=== PATIENT | female | born 1975 | race African-American/Black ===

== ENCOUNTER 2019-12-06 14:03 | Inpatient (IN) | payer OTHER ==
[2019-12-06] MEDS ORDERED: Acetaminophen 325 MG TAB PO PRN (15:28)
[2019-12-06] MEDS ORDERED: HYDROcodone/Acetaminophen 5/325 mg Tablet PO PRN (15:28)
[2019-12-06] MEDS: HYDROcodone/Acetaminophen 5/325 mg Tablet PO PRN ×2 (16:19→20:20)
[2019-12-06] MEDS ORDERED: cefOXitin Sodium/Dextrose,Iso 1 GM in Premix Bag 1 BAG IVPB SCH (18:00)
[2019-12-06] MEDS ORDERED: cefOXitin Sodium 1 GM in Sodium Chloride 0.9% 100 ML IVPB SCH (18:00)
[2019-12-06] MEDS ORDERED: Ibuprofen 800 MG TAB PO PRN (18:43)
[2019-12-06] MEDS: cefOXitin Sodium/Dextrose,Iso 2 GM in Premix Bag 1 BAG IVPB SCH ×2 (18:51→23:51)
--- NOTE | 2019-12-06 20:40 | HP ---
CHIEF COMPLAINT: Abdominal pain. HISTORY OF PRESENT ILLNESS: Ms. Koo is a 44-year-old black G2, P2, with a last menstrual period of 11/16/2019, who presents to [facility] Emergency Room complaining of a 4-day history of abdominal pain. She denies associated nausea or vomiting. Of note is the fact that she was admitted 2 years ago with bilateral TOAs. At that time, she was treated with antibiotics and did not require surgery. PAST OBSTETRICAL HISTORY: Includes 2 vaginal deliveries at term. PAST MEDICAL HISTORY: Includes HIV, currently sees Dr. Gonzales. PAST SURGICAL HISTORY: Unremarkable. CURRENT MEDICATIONS: Antiviral, currently unknown. ALLERGIES: NO KNOWN ALLERGIES. SOCIAL HISTORY: She states she smokes less than half a pack per day. She denies illicit drug use. FAMILY HISTORY: Unremarkable. REVIEW OF SYSTEMS: Positive for nausea and vomiting. Denies fever, chills, vaginal bleeding or vaginal discharge. PHYSICAL EXAMINATION: VITAL SIGNS: Initial vital signs; blood pressure 135/91, pulse 78, respirations 18, temperature 98.7, and O2 saturation 99% on room air. GENERAL: She is pleasant and in no acute distress. CHEST: Clear to auscultation. CARDIOVASCULAR: Regular rate and rhythm. ABDOMEN: Soft and nondistended. There is tenderness to deep palpation on both sides. PELVIC: Deferred. The patient will not allow at this time. LABORATORY DATA: White count 10.3, hemoglobin and hematocrit are 12.3 and 36.9 , and platelet count 281,000. Chemistries; sodium 136, potassium 4.3, BUN 7, creatinine 0.73, glucose 120, and lipase is 12. Qualitative test is negative. Urinalysis shows 1+ protein, positive for ketones, blood, and nitrites. There are positive for leukocyte esterase. On microscopic, there is 0 to 3 rbc's, 7 to 10 wbc's, 7 to 10 squamous cells, 3+ bacteria, and rare Trichomonas. Wet prep shows clue cells present and Trichomonas present. No yeast are noted. IMAGING DATA: CT of the abdomen and pelvis show normal liver, spleen, pancreas, adrenals, and kidneys. No gallstones are seen. No free air is seen. There is a small amount of free air in the pelvis. The uterus is seen and there appears to be dilated tubular structures with fluid-filled vargas in both adnexal regions with the right being reported larger than the left. These findings are consistent with tubo-ovarian abscesses. ASSESSMENT: 1. Suspected tubo-ovarian abscesses seen on CT today, possibly chronic. 2. History of human immunodeficiency virus. Status of disease unknown at this time. 3. Bacterial vaginosis and Trichomonas. PLAN: The patient will be admitted at this time. Mefoxin, doxycycline, and Flagyl have been started. Consult for Dr. Gonzales with Infectious Disease to evaluate her status has also been ordered. I have also ordered an ultrasound in the morning to further delineate the size of the tubo-ovarian abscesses that were seen on CT. The patient will be admitted and watched carefully. Job ID: [id number] [facility]
[2019-12-06] MEDS: metroNIDAZOLE 500 MG TAB PO SCH (21:45)
[2019-12-06] MEDS: Famotidine 20 MG TAB PO SCH (21:45)
[2019-12-06] MEDS: Doxycycline 100 MG CAP PO SCH (21:46)
[2019-12-06] MEDS ORDERED: Sodium Chloride 0.9% 20 ML ONE (22:41)
[2019-12-06] MEDS: Meperidine HCl/PF 25 MG/ML VIAL SLOW IVP PRN (23:05)
[2019-12-06] MEDS: Promethazine HCl 25 MG/ML VIAL SLOW IVP PRN (23:07)
[2019-12-07] MEDS: Meperidine HCl/PF 25 MG/ML VIAL SLOW IVP PRN ×2 (02:13→05:19)
[2019-12-07] MEDS: Promethazine HCl 25 MG/ML VIAL SLOW IVP PRN ×2 (02:15→05:21)
[2019-12-07] MEDS: cefOXitin Sodium/Dextrose,Iso 2 GM in Premix Bag 1 BAG IVPB SCH ×3 (05:34→19:49)
[2019-12-07 06:04] LABS: Band 30 % (5-11); Hemoglobin 11.4 g/dL (12.0-16.0); Hypochromia SLIGHT = 6-15 cells (100X) (0-5/hpf); Lymphocytes 1 % (21-51); MDiff Complete? YES; Mean Corpuscular HGB CONC 32.3 g/dL (32.0-36.0); Mean Corpuscular Hemoglobin 29.6 pg (27.0-31.0); Mean Corpuscular Volume 91.5 fL (78.0-98.0); Mean Platelet Volume 7.5 fL (7.4-10.4); Monocytes 13 % (0-10); Neutrophil 56 % (42-75); Platelet Count 262 thou/uL (130-400); Platelet Morphology Comment Appears Adequate; RBC Distribution Width 13.4 % (11.5-14.5); Red Blood Cell (RBC) Count 3.86 mill/uL (4.20-5.40); White Blood Cell (WBC) Count 17.6 thou/uL (4.8-10.8)
[2019-12-07 06:30] LABS: Syphilis Antibody Nonreactive (Nonreactive); Syphilis Antibody Index 0.05 S/CO (<1.00 Non-Reactive)
--- NOTE | 2019-12-07 08:14 | PDOC.EVN ---
Event Note - Event Note Event Note: Mef/Doxy/Flagyl #1 C/o increasing pain overnight. Required Demerol/Phenergan for pain. VSS AF Abdomen remains tender to palpation. WBC this AM increased to 17K. Plan: Pt. currently in dept. for [facility] to further evaluate TOAs seen on CT. Discussed with Dr. Rivas, may need to consider exploration if condition does not improve.
[2019-12-07] MEDS: HYDROcodone/Acetaminophen 5/325 mg Tablet PO PRN ×2 (08:59→20:04)
[2019-12-07] MEDS: Ondansetron ODT 4 MG TAB PO PRN (08:59)
[2019-12-07] MEDS: Famotidine 20 MG TAB PO SCH ×2 (09:00→20:46)
[2019-12-07] MEDS: Doxycycline 100 MG CAP PO SCH ×2 (09:00→20:46)
--- NOTE | 2019-12-07 09:08 | ULT ---
EXAM: Pelvic ultrasound HISTORY: Tubo-ovarian abscesses COMPARISON: CT abdomen/pelvis 12/06/2019 TECHNIQUE: Multiple grayscale and color Doppler images were obtained in a transabdominal pelvic ultra sound. Spectral analysis of the Doppler waveforms of the ovaries were performed. FINDINGS: Evaluation is limited secondary to patient discomfort. CERVIX: No evidence of nabothian cysts. UTERUS: Normal in size without focal abnormality. ENDOMETRIAL STRIPE: 15 mm. A small amount free fluid is seen in the pelvis. There is a tuberous structure seen in the left adnexal region which may represent an enlarged fallopi an tube. RIGHT OVARY: Normal flow without focal mass. LEFT OVARY: Normal flow without focal mass. IMPRESSION: Dilated tubular structure in the left adnexal region likely corresponds abnormality on CT and likely represents an enlarged fallopian tube/tubo-ovarian abscess. Normal flow is seen within both ovaries.
[2019-12-07] MEDS: metroNIDAZOLE 500 MG TAB PO SCH ×3 (09:30→20:46)
[2019-12-07] MEDS ORDERED: Rocuronium Bromide 10 MG/ML (10ML VIAL) ONE (10:14)
[2019-12-07] MEDS ORDERED: Lidocaine 1% PF 5 ML VIAL ONE (10:14)
[2019-12-07] MEDS ORDERED: Dexamethasone 20 MG/5 ML VIAL ONE (10:14)
[2019-12-07] MEDS ORDERED: Glycopyrrolate 0.2 MG/ML 5 ML SYRINGE ONE (10:14)
[2019-12-07] MEDS ORDERED: Ketorolac Tromethamine 30 MG/ML VIAL ONE (10:14)
[2019-12-07] MEDS ORDERED: PROPOFOL 200 MG/20 ML VIAL ONE (10:14)
[2019-12-07 10:25] LABS: Hemoglobin 11.3 g/dL (12.0-16.0); Mean Corpuscular HGB CONC 33.5 g/dL (32.0-36.0); Mean Corpuscular Hemoglobin 31.1 pg (27.0-31.0); Mean Corpuscular Volume 92.9 fL (78.0-98.0); Mean Platelet Volume 7.1 fL (7.4-10.4); Platelet Count 260 thou/uL (130-400); RBC Distribution Width 13.2 % (11.5-14.5); Red Blood Cell (RBC) Count 3.63 mill/uL (4.20-5.40); White Blood Cell (WBC) Count 18.3 thou/uL (4.8-10.8)
[2019-12-07 12:32] LABS: Band 21 % (5-11); Lymphocytes 1 % (21-51); MDiff Complete? YES; Monocytes 11 % (0-10); Neutrophil 67 % (42-75); RBC Morphology Normal
[2019-12-07] MEDS ORDERED: Lidocaine 2% Jelly 5 ML TUBE ONE (13:22)
[2019-12-07] MEDS ORDERED: Fentanyl 100 MCG/2 ML VIAL ONE ×3 (13:22→16:47)
[2019-12-07] MEDS ORDERED: Bupivacaine PF 0.5% 30 ML VIAL ONE (13:26)
[2019-12-07] MEDS ORDERED: Lidocaine 1% w/Epinephrine 1:100K 20 ML VIAL ONE (13:29)
--- NOTE | 2019-12-07 13:32 | PDOC.EVN ---
Event Note - Event Note Event Note: I came onto duty today with Dr Lagunas checking out Ms Dodge. He expressed concern of her acutely worsening as evidenced by increasing pain medicine requirement. We attempted to see her together but she was down for u/s. Pt has required 3 doses of demerol 25mg IV with pherergan and 3doses of hydrocodone 5mg 2tabs, ibuprofen and toradol. Wc has increased from 10,000 yesterday on arrival to 18,000 today with 30% bands. On physical exam when she returned she is diffusing tenderness with guarding. She says it hurts to breath or cough or to move much. She needs assistance to the bathroom because of the level of pain she is in. CT and ultrasound show evidence of a tubular structures with enhancement and no inflammatory changes in surrounding tissues clearly evident. These findings were seen also in 2018 with the right structure appearing larger today as compared to 2018. She has remained afebrile. vital signs are all wnl. My concern at this time is the increasing pain and abdominal findings and increasing wc. We have discussed proceeding to diagnostic laparoscopy to evaluate for the need for further surgical intervention. She has a history or toa 2018. We have discussed the risk of bleeding, damage to bowel , bladder , blood vessels. Pt has expressed understanding and desires to proceed.
--- NOTE | 2019-12-07 15:57 | CON ---
DATE OF CONSULTATION: 12/07/2019 REASON FOR CONSULTATION: Abdominal pain, abnormal findings in the adnexal area with leukocytosis. HISTORY OF PRESENT ILLNESS: A 44-year-old whom I have seen in the past for a longstanding HIV infection, fairly well controlled. She has pretty good adherence to her antiretroviral medicine. In 2018, she had an episode of pelvic inflammatory disease, which I think was treated conservatively. I believe it was treated either at [facility]. She improved and kept following her in the clinic. The last time I saw her was in 2019, where the CD4 cell count was in the mid 400s and viral load was, I believe, 111. I have not seen her since that date and my intention then was to repeat the imaging study to see about the progression of the previously noted adnexal cystic masses. That was never carried out, and so now she presents to the emergency room with a 4- or 5-day history of progressively worsening abdominal pain. The pain is most intense in the lower segments of her abdomen. It makes her unable to move about and/or ambulate even. When she voids, she feels a sensation of pressure, but there is no dysuria. She has some back pain associated with this as well. Did not have any fever reported. No chills or vomiting. No respiratory symptoms. She tries to cough sometimes, but the pain in the lower abdomen prevents her from coughing. No joint symptoms or skin disorder. She claims still adherence to her Genvoya, which is her antiretroviral medication. MEDICAL HISTORY: 1. HIV infection, on Genvoya with adequate virologic suppression. 2. She has had pelvic inflammatory disease, treated in 2018 with antimicrobial therapy with improvement. ALLERGIES: NONE. MEDICATIONS: Genvoya. In addition to that, currently she is receiving cefoxitin, doxycycline, and Flagyl. FAMILY HISTORY: Noncontributory. SOCIAL HISTORY: She smokes intermittently. She works at [employer] for many years now. Lives in an apartment in town with two of her children. PHYSICAL EXAMINATION: VITAL SIGNS: Her temperature max was 99.4, blood pressure 98/61, pulse 94, respirations 18, and O2 saturation 99. GENERAL: Does not appear in distress except when she tries to move around in bed. SKIN: No skin lesions. No lymphadenopathy. HEENT: Ocular movements conjugate. Sclerae white. Nasal passages patent. Oral cavity was fairly normal. Teeth in very pretty good shape. NECK: Supple. No jugular vein distention. No carotid bruits. LUNGS: Symmetric air entry. No crackles or wheezing. HEART: S1 and S2. Regular rate. No S3 or S4. ABDOMEN: Very tender in the lower quadrants, even did not press too much to avoid eliciting pain. It does not appear distended on visual inspection. EXTREMITIES: No joint inflammatory activity. No edema. Pulses 1+ in dorsalis pedis. Plantar responses are flexor. NEUROLOGIC: Nonfocal including cognitive function. LABORATORY DATA: White cell count 17.6 and 18.3, platelets 262, hemoglobin 11, and MCV 91. She had 30% bands on arrival and went down to 21%. Syphilis was nonreactive. COVID was not detected. She had Trichomonas present and clue cells present. Some yeast was absent. Urinalysis with 7-10 wbc's and 30 protein. Chemistry with a creatinine 0.73, calcium 10.6, albumin 3.8, globulin 3.7, and sodium 136. Her last CD4 cell count was last year and it was mid 400. Her viral load was 111 approximately. IMAGING STUDIES: We have an abdomen and pelvis CT from yesterday. This demonstrated a 2 cm cyst in the right ovary and then dilated tubular structures with fluid enhancing vargas in the adnexal regions, right larger than left, consistent with tubo-ovarian abscesses. ASSESSMENT: 1. Longstanding human immunodeficiency virus infection, fairly well controlled with a decent compliance with treatment, although I have not seen her in more than the year now. 2. Pelvic inflammatory disease, treated in 2018. 3. Recrudescence of abdominal pain with the CT findings described above. 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 The usual organisms including Neisseria, Gonorrhea, Chlamydia, Bacteroides, Enterobacteriaceae, streptococci are to be considered. The current regimen seems to be adequate for management and we will see what about results of the procedure and then plan treatment once there is further clinical improvement. Continue antiretroviral therapy as the same as before. I have asked her to have it brought in the hospital, so she can continue taking it and reassess her CD4 cell count and viral load. Job ID: [id number] [facility]
[2019-12-07] MEDS ORDERED: HYDROmorphone 2 MG/ML VIAL SLOW IVP PRN (16:29)
[2019-12-07] MEDS ORDERED: Ondansetron HCl/PF 4 MG/2 ML Vial IVP PRN (16:29)
[2019-12-07] MEDS ORDERED: PACU-Morphine 4MG/ML VIAL SLOW IVP PRN (16:29)
[2019-12-07] MEDS ORDERED: Promethazine HCl 25 MG/ML VIAL SLOW IVP PRN (16:29)
[2019-12-07] MEDS ORDERED: Promethazine HCl 25 MG/ML VIAL IM PRN (16:29)
[2019-12-07] MEDS ORDERED: Ondansetron PF 4 MG/2 ML Vial ONE (16:39)
[2019-12-07] MEDS ORDERED: Ketorolac Tromethamine 30 MG/ML VIAL IVP SCH (20:30)
--- NOTE | 2019-12-07 20:36 | PDOC.EVN ---
Event Note - Event Note Event Note: Post op note 222912/07/19 Pt is awake. I have explained the surgical findings. Pt is having pain and points to the surgical sites. vitals: 105/72 97.9 82 20 95% on RA PT is breathing but does not want to take deep breaths because of the pain at her incisions. Pain medication on MAR hydrocodone 5mg 1-2 tabs po q4hrs prn pain morphine 4mg IV q2hrs prn pain adding toradol 15mg IV q6hrs prn pain Adding IS to encourage more full breaths Continue cefoxitin/doxycycline/flagyl
[2019-12-07] MEDS: Ketorolac Tromethamine 30 MG/ML VIAL IVP SCH (20:52)
--- NOTE | 2019-12-07 21:35 | OP ---
DATE OF PROCEDURE: 12/07/2019 PREOPERATIVE DIAGNOSES: 1. Acute abdominal pain. 2. Tubo-ovarian abscess. POSTOPERATIVE DIAGNOSES: 1. Acute abdominal pain. 2. Tubo-ovarian abscess, perforated. PROCEDURES PERFORMED: Diagnostic laparoscopy with left salpingectomy and abdominal washout. BLOOD LOSS: Less than 50 mL. ANESTHESIA: General. FINDINGS: Extensive filmy and dense adhesions involving the uterus, tubes, bowel and upper abdomen, left pyosalpinx with perforation and greatly enlarged, right adhesed tube into the ovarian fossa with dense adhesions, did not appear to be acutely infected. Upper Colon appears to be very dilated. The upper abdomen shows Gvwv-Ozzw-Vojlng adhesions between the liver and the anterior abdominal wall. Sigmoid colon has a more normal appearance . COMPLICATIONS: None. DESCRIPTION OF PROCEDURE: Ms. Azalea Koo, after evaluation with a worsening acute abdomen in the setting of concerns for tubo-ovarian abscess, a decision was made to take the patient to the operating room. The patient was counseled to the risks and benefits including the risk of bleeding, infection, injury to bowel, bladder, or blood vessels. The patient expressed understanding and decided to proceed. She was placed under general anesthesia and placed in dorsal lithotomy position in [facility]. Attention was placed vaginally initially, where two single-tooth tenaculums were placed on the anterior lip of the cervix. Attention was placed abdominally and about a ___12mm skin incision was placed infraumbilically and blunt dissection with a hemostat was carried down to the level of the fascia. Inspection of the abdomen revealed a very loose abdominal skin, feeling free adhesions underneath. Decision at that time was made to just enter bluntly into the abdominal cavity. The abdomen was tented up and an 11 mm port was then inserted into the abdominal cavity with ease. Proper placement was confirmed by laparoscope. Abdomen was insufflated to 15 mmHg. The inspection of the abdomen immediately noted some purulent bloody fluid in the pelvis. The left tube was extensively dilated with a perforation and omentum was adhesed to the end of it. The right tube was densely adhesed down into the ovarian fossa, did not appear to be dilated or actively infected. The colon appeared to be dilated. Once the abdomen was inspected, another 11 mm port was placed suprapubically and a 5 mm port was placed left lateral. With these ports in place, greater manipulation of the bowel and pelvis are possible. The patient was placed in Trendelenburg and the omentum was then sharply dissected off the left tube with a LigaSure bipolar device. With the tube now more easily visible, the tube was elevated to the level that it could be and the mesosalpinx was grasped with the LigaSure device, ligated, and transected. This process was continued until the majority of the tube was removed. In the process, the pyosalpinx was inadvertently entered into and the copious purulent material was introduced into the abdominal cavity. The inspection of the surgical field demonstrated good hemostasis. A portion of the tube that had been left behind in initial transection was removed. The pelvis was thoroughly irrigated with a total of about 3 L of fluid, removing as much of the purulence as possible. With this portion completed and the abdomen was deflated down to 5 mmHg and the surgical site still appeared to be hemostatic, again the abdomen was more thoroughly explored at the end, seeing again this dilated bowel and the Tkpn-Yyqh-Mwfgct adhesions between the liver and the anterior abdominal wall. With this completed, on inspection of the abdominal cavity, we did not see any bleeding or any other evidence of spillage or injury. There was some omentum visible, adhesed to the anterior abdominal wall supraumbilically, but the bowel is otherwise free and mobile. At this time, the suprapubic fascial incision was then closed with a 0 Vicryl using a port closure assist making a single stitch closure. The other sites were sufficiently small after deflating the abdomen. The skin was closed with 4 -0 Monocryl. The tenaculums were removed from the cervix and good hemostasis was noted on visible inspection. The procedure at this time was completed and the patient was taken out of lithotomy position, transferred to recovery room in stable condition. Job ID: [id number] [facility]
[2019-12-08] MEDS: cefOXitin Sodium/Dextrose,Iso 2 GM in Premix Bag 1 BAG IVPB SCH ×5 (00:32→23:28)
[2019-12-08] MEDS: HYDROcodone/Acetaminophen 5/325 mg Tablet PO PRN ×4 (01:04→16:15)
[2019-12-08] MEDS: Ketorolac Tromethamine 30 MG/ML VIAL IVP SCH ×3 (05:52→18:33)
[2019-12-08] MEDS ORDERED: Lactated Ringer's 1,000 ML IV SCH ×3 (06:30→21:00)
[2019-12-08 07:18] LABS: Hemoglobin 10.9 g/dL (12.0-16.0); Mean Corpuscular HGB CONC 32.9 g/dL (32.0-36.0); Mean Corpuscular Hemoglobin 30.9 pg (27.0-31.0); Mean Platelet Volume 6.9 fL (7.4-10.4); Platelet Count 250 thou/uL (130-400); RBC Distribution Width 13.5 % (11.5-14.5); Red Blood Cell (RBC) Count 3.53 mill/uL (4.20-5.40); White Blood Cell (WBC) Count 21.3 thou/uL (4.8-10.8)
[2019-12-08] MEDS: metroNIDAZOLE 500 MG TAB PO SCH ×3 (08:01→21:18)
[2019-12-08] MEDS: Doxycycline 100 MG CAP PO SCH ×2 (08:01→21:18)
[2019-12-08] MEDS: GENVOYA PO SCH (08:02)
[2019-12-08] MEDS: Famotidine 20 MG TAB PO SCH ×2 (08:02→21:18)
[2019-12-08] MEDS: Lactated Ringer's 1,000 ML IV SCH ×4 (08:03→21:21)
[2019-12-08] MEDS: Meperidine HCl/PF 25 MG/ML VIAL SLOW IVP PRN ×3 (08:06→18:38)
[2019-12-08 08:27] LABS: Band 20 % (5-11); Lymphocytes 1 % (21-51); MDiff Complete? YES; Monocytes 5 % (0-10); Neutrophil 74 % (42-75); Platelet Morphology Comment Appears Adequate; Polychromasia SLIGHT = 2-3 cells (100X) (0-2/hpf)
--- NOTE | 2019-12-08 08:38 | PRG ---
DATE OF SERVICE: 12/08/2019 SUBJECTIVE: The patient is postop day #1, status post diagnostic laparoscopy with left salpingectomy secondary to a left pyosalpinx enlarged and ruptured. This morning the patient continues to complain of pain throughout, difficult to identify exactly where she is hurting the most. The patient has a nursing staff who has had difficulty ambulating with her and denies passing gas. This morning during our evaluation, the patient had ordered toast and butter, sausage, oatmeal and eggs and did report she tolerated chicken noodle soup last night. PHYSICAL EXAMINATION: Vital signs throughout the night have been all within normal limits. Blood pressure this morning 114/73, temperature 98.9, pulse of 85, respiratory rate 18 saturating 97% on room air. GENERAL: She appears to be in some distress though this is difficult to decipher this is due to personality or due to complications of her surgery. Abdomen has generalized tenderness with most tenderness at the surgical sites. She has some guarding and does not allow for any deep palpation[place] [address], hemoglobin 10.9, hematocrit 33.2, and platelets of 250,000. Differential is pending. The patient was given an incentive spirometer last night with encouragement to use. She was given a bolus of 1 L IV fluids this morning. This patient had been otherwise been on TKO and had put out a total of 300 mL of urine with 100 mL last night. ASSESSMENT AND PLAN: The patient is postop day #1, status post a diagnostic laparoscopy with a left salpingectomy of a dilated purulent filled pyosalpinx. She is on Toradol 15 mg q.6 hours, hydrocodone 10 mg q.4 and Demerol IV for breakthrough pain, which has not been used since her surgery. Today, patient has been encouraged to ambulate. I will monitor how well she tolerates her diet and continued to encourage use of incentive spirometer. Should her abdominal physical findings be out of proportion to expectations, patient may need abdominal imaging just to reassure that there is no other pathologic concerns and we have increased IV fluids at this to 125 until the patient is tolerating a diet well. The patient will continue on her antibiotics for tubo ovarian abscesses on cefoxitin, doxycycline and metronidazole. Job ID: [id number] [facility]
[2019-12-08] MEDS ORDERED: Sodium Chloride 0.9% 500 ML IV SCH (14:45)
--- NOTE | 2019-12-08 16:08 | PRG ---
DATE OF SERVICE: 12/08/2019 SUBJECTIVE: The patient had surgical intervention. The operative report was reviewed. Dr. Rivas was the surgeon. Postoperative diagnosis was tubo- ovarian abscess, perforated. There were extensive dense adhesions involving the uterus, tubes, bowel, and upper abdomen including the liver, the left pyosalpinx perforated and was greatly enlarged, although it did not appear to be acutely infected. OBJECTIVE: VITAL SINGS: She is afebrile, still with moderate pain. LUNGS: Clear. HEART: S1 and S2, regular rate. ABDOMEN: Moderately tender. Moves all extremities. LABORATORY DATA: White cell count 21,000, hemoglobin 10.9, and platelets are 250 with 74% neutrophils, 20% bands. She is currently on Genvoya, Flagyl. ASSESSMENT AND DISCUSSION: Longstanding HIV infection, now with recrudescence of pain and the findings described above. Awaiting on the cultures and continue current regimen. May have to switch to a broader gram-negative genie coverage depending on tomorrow's findings. Our goal is to eventual transition to oral antimicrobial therapy for continuation of treatment, may need a PICC line though. Job ID: [id number] [facility]
[2019-12-08 18:08] LABS: %CD4 (Helper/Inducer) 25.9 % (30.8-58.5); Absolute CD4 233 /uL (359-1519); Lymphocytes/Gated Cell Count 0.9 x10E3/uL (0.7-3.1); Total Lymphocyte 5 % (Not Estab.); WBC Total Count 16.4 x10E3/uL (3.4-10.8)
[2019-12-08 18:31] LABS: Hemoglobin 11.3 g/dL (12.0-16.0)
[2019-12-08 18:57] LABS: ALT (SGPT) 13 U/L (8-55); AST (SGOT) 16 U/L (5-34); Albumin 3.3 g/dL (3.5-5.0); Alkaline Phosphatase 89 U/L (40-110); Anion Gap 13 mmol/L (10-20); BUN (Urea Nitrogen) 10 mg/dL (7.0-18.7); Bilirubin, Total 0.3 mg/dL (0.2-1.2); Calc. Creatinine Clearance 97 mL/min (70-130); Calcium 10.9 mg/dL (7.8-10.44); Carbon Dioxide 19 mmol/L (22-29); Chloride 108 mmol/L (98-107); Estimated GFR-MDRD Greater than 90; Globulin 3.8 g/dL (2.4-3.5); Glucose 93 mg/dL (70-105); Potassium 4.3 mmol/L (3.5-5.1); Protein, Total 7.1 g/dL (6.0-8.3); Sodium 136 mmol/L (136-145)
--- NOTE | 2019-12-08 19:01 | PDOC.EVN ---
Event Note - Event Note Event Note: POD! s/p laparoscopic removal of TOA. Remains on Mefoxin/Doxycycline and Flagyl. Minimal urine thru out the day. VSS AF 1 liter bolus reportedly given this AM, floor RN uncertain if all was given. I ordered 500 cc NS bolus at mid afternoon with only 150 cc since that time. Labs ordered, kruger placed. Will obtain FP consult for oliguria in this HIV+pt.
[2019-12-08 19:30] LABS: Bilirubin Negative (Negative); Blood, Urine 2+ (Negative); Clarity Clear (Clear); Glucose, Urine (Dipstick) Normal (Negative); Ketone, Urine 10 mg/dL (Negative); Leukocyte 250 Leu/uL (Negative); Mucous/LPF 1+ LPF (<2+); Nitrite Negative (Negative); Protein, Urine (Dipstick) 50 mg/dL (Neg-Trace); Specific Gravity, Urine 1.038 (1.002-1.036); Urobilinogen Normal mg/dL (Less than 2)
[2019-12-08 19:39] LABS: Bacteria/HPF Rare-Few HPF (None Seen)
[2019-12-08 19:50] LABS: Creatinine, Urine 319.01 mg/dL (47-110)
[2019-12-08] MEDS ORDERED: Ketorolac Tromethamine 30 MG/ML VIAL IVP PRN (20:21)
--- NOTE | 2019-12-08 20:23 | PDOC.FPRHP ---
- History of Present Illness Chief Complaint: decreased urine outpt History of Present Illness: 44 yo with HIV postop day 1 for let salpinectomy & abdominal washout for a perforated tub-ovarian abscess. We were consulted on for acute oliguria. She presented to the ER on 12/06/19 for worsening abdominal pain for the past 4 days. Pelvic U/S showed left tubo-ovarian abscess. She was started and is still on mefoxin, doxycycline and flagy. Dr. Gonzales is following. She underwent diagnostic laparoscopy with left slpingectomy & abdominal washout on 12/07/19. EBL was <50mL. She had received a total of 1500L with only about 250cc output since surgery. We were consulted for further evaluation of her oliguria. Patient denies renal issues. She has had HIV for 23 years in which she reports medication compliance, mostly. - Allergies/Adverse Reactions Allergies Allergy/AdvReac Type Severity Reaction Status Date / Time No Known Allergies Allergy Unverified 12/06/19 18:52 - Home Medications Medication Instructions Recorded Confirmed Type Elviteg/Cob/Emtri/Tenof Alafen 1 tab PO DAILY 12/07/19 12/07/19 History [Genvoya Tablet] - History PMHx:HIV PSHx: Right wrist surgery FHx:Kidney issues, unable to further specify Social:Denies TAD - Review of Systems General: denies: fever/chills, weight/appetite/sleep changes, night sweats ENT: denies: nasal congestion, rhinorrhea Respiratory: denies: cough, shortness of breath Cardiovascular: denies: chest pain, palpitation, edema Gastrointestinal: reports: constipation, abdominal pain. denies: nausea, vomiting, diarrhea Skin: denies: rashes, lesions, jaundice Musculoskeletal: reports: pain. denies: tenderness, swelling, arthritis/ arthralgias Neurological: denies: numbness, syncope, seizure Psychological: denies: anxiety, depression - Vital signs BP: [105/71] HR: [84] RR: [12] Tmax: [97.8] Pox: [94]% on [RA] Wt: [68kg] - Physical Exam Constitutional: awake, alert and oriented, well developed -Constitutional: mild distress from pain HEENT: normocephalic and atraumatic, EOMI, conjunctiva clear, no scleral icterus Neck: supple, FROM, trachea midline Chest: no lesions Heart: RRR, normal S1/S2, no murmurs/rubs/gallops Lungs: CTAB, no respiratory distress Abdomen: soft -Abdomen: tender at incision sites mildly distended Musculoskeletal: normal structure Neurological: no focal deficit, CN II-XII intact Skin: no rash/lesions, good turgor, capillary refill <2 seconds Heme/Lymphatic: no unusual bruising or bleeding, no purpura Psychiatric: good judgment and insight FMR H&P: Results - Labs Result Diagrams: 12/08/19 18:15 12/08/19 18:15 Lab results: WBC 21.3 thou/uL (4.8-10.8) H 12/08/19 07:02 Hgb 11.3 g/dL (12.0-16.0) L 12/08/19 18:15 Hct 35.0 % (36.0-47.0) L 12/08/19 18:15 MCV 94.0 fL (78.0-98.0) 12/08/19 07:02 Plt Count 250 thou/uL (130-400) 12/08/19 07:02 Band Neuts % (Manual) 20 % (5-11) H 12/08/19 07:02 Sodium 136 mmol/L (136-145) 12/08/19 18:15 Potassium 4.3 mmol/L (3.5-5.1) 12/08/19 18:15 Chloride 108 mmol/L (98-107) H 12/08/19 18:15 Carbon Dioxide 19 mmol/L (22-29) L 12/08/19 18:15 BUN 10 mg/dL (7.0-18.7) 12/08/19 18:15 Creatinine 0.81 mg/dL (0.6-1.1) 12/08/19 18:15 Glucose 93 mg/dL (70-105) 12/08/19 18:15 Calcium 10.9 mg/dL (7.8-10.44) H 12/08/19 18:15 Total Bilirubin 0.3 mg/dL (0.2-1.2) 12/08/19 18:15 AST 16 U/L (5-34) 12/08/19 18:15 ALT 13 U/L (8-55) 12/08/19 18:15 Alkaline Phosphatase 89 U/L (40-110) 12/08/19 18:15 Serum Total Protein 7.1 g/dL (6.0-8.3) 12/08/19 18:15 Albumin 3.3 g/dL (3.5-5.0) L 12/08/19 18:15 Urine Ketones 10 mg/dL (Negative) A 12/08/19 19:00 Urine Blood 2+ (Negative) A 12/08/19 19:00 Urine Nitrite Negative (Negative) 12/08/19 19:00 Ur Leukocyte Esterase 250 Robert/uL (Negative) A 12/08/19 19:00 Urine RBC 11-20 HPF (0-3) A 12/08/19 19:00 Urine WBC 11-20 HPF (0-3) A 12/08/19 19:00 Ur Squamous Epith Cells 7-10 HPF (0-3) A 12/08/19 19:00 Urine Bacteria Rare-Few HPF (None Seen) 12/08/19 19:00 - Radiology Interpretation Other Status: report reviewed by me Additional comment: Left tubo-ovarian abscess FMR H&P: A/P - Plan Acute oliguria -UO: 16cc/hr in the past 24 hours -FENa <1%, sp grav 1.080, no FRAN- labs c/w with prenrenal picture -Will fluid bolus 1L, reassess. Suspect she is several liters down and may need more -After fluid bolus will start mIVF at 150cc/hr -Strict I/O Left TOA s/p laparascopic left salpingectomy with abdominal washout -on 12/06, POD 1 -Continue routine postop care -Add on toradol for pain control -Continue current abx regimen of cefoxitin, doxycycline & flagyl per OBGYN HIV -Dr. Gonzales following -Continue HIV anti-retroviral therapy Code: Full FMR H&P: Upper Level - Plan Date/Time: 12/08/192022 I, [], have evaluated this patient and agree with findings/plan as outlined by multicultural internship resident. Pertinent changes/additions are listed here. Addendum - Attending - Attending Attestation Date/Time: 12/08/19 [id number] I personally evaluated the patient and discussed the management with Dr. Shell I agree with the History, Examination, Assessment and Plan documented above with any addition or exceptions noted below. 44 yo female s/p lap left salpingectomy and washout for TOA 2/2 PID with underlying HIV. Consulted due to oligouria. Patient appears to be dehydrated based on lab findings. Will continue with fluid challenge. VSS but low normal BP. Asymptomatic. No evidence of FRAN at this time. Strict I/Os. Daniels placed. Renal US if any changes occur. FeNA appears to suggest pre-renal. Patient report low PO intake. Continue to monitor throughout the night. Bolus as needed. Increase maintenance fluid rate to 150 or 175 mL/hr. Continue to trend renal function to make sure no concern for ureter injury or intrinsic dz. Raad
[2019-12-08] MEDS: Simethicone Chewable 80 MG TAB PO PRN (23:35)
[2019-12-09] MEDS ORDERED: Zolpidem Tartrate 5 MG TAB PO SCH (00:33)
[2019-12-09] MEDS: HYDROcodone/Acetaminophen 5/325 mg Tablet PO PRN ×2 (00:44→05:04)
[2019-12-09] MEDS ORDERED: Lactated Ringer's 1,000 ML IV SCH (04:00)
--- NOTE | 2019-12-09 07:06 | PDOC.FM ---
- Subjective Subjective: Pt is currently 10/10 pain that is located in the LUQ and is sharp. She denies any appetite. 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 She has had HIV for 23 years and been on the same regimen. Discussed with nurses: IV Fluids: 4800 mL/12H Urinary Output: 250 mL/12H - Objective MAR Reviewed: Yes Vital Signs & Weight: Vital Signs (12 hours) Temp Pulse Resp BP Pulse Ox 12/08/19 23:22 98.4 F 81 20 112/76 98 12/08/19 20:36 97.8 F 84 12 105/71 94 L Weight Weight 68 kg I&O: 12/08/19 12/09/19 12/10/19 06:59 06:59 06:59 Intake Total 1520 120 Output Total 300 250 Balance 1220 -130 Result Diagrams: 12/09/19 07:04 12/09/19 07:04 Radiology Reviewed by me: Yes (KUB shows dilation of colon, Renal US wnl) Phys Exam - Physical Examination appears tired and uncomfortable HEENT: moist MMs, sclera anicteric Neck: no nodes, supple Respiratory: clear to auscultation bilateral Cardiovascular: RRR, no significant murmur, no rub Distended, absent bowel sounds, significantly tender to palpitation Musculoskeletal: no edema, pulses present Neurological: moves all 4 limbs Lymphatic: no nodes Deviation from normal: flat affect, depressed mood Skin: no rash Dx/Plan (1) S/P unilateral salpingo-oophorectomy Code(s): Z90.721 - ACQUIRED ABSENCE OF OVARIES, UNILATERAL Status: Acute (2) Tubo-ovarian abscess Code(s): N70.93 - SALPINGITIS AND OOPHORITIS, UNSPECIFIED Status: Acute (3) HIV (human immunodeficiency virus infection) Code(s): B20 - HUMAN IMMUNODEFICIENCY VIRUS [HIV] DISEASE Status: Acute (4) Ileus Code(s): K56.7 - ILEUS, UNSPECIFIED Status: Acute - Plan Plan: 44 yo with HIV postop day 2 for left salpingectomy & abdominal washout for a perforated tub-ovarian abscess. 1. Acute oliguria - FENa <1%, sp grav 1.080, no FRAN- labs c/w with prenrenal picture - mIVF at 150cc/hr * Received :4800 mL/12H - Strict I/O * Urinary Output: 250 mL/12H -Renal US wnl -Continue IVF 2. Left TOA s/p laparascopic left salpingectomy with abdominal washout - 12/06, POD 2 - Continue routine postop care - D/C toradol due to poor urinary output - Continue current abx regimen of cefoxitin, doxycycline & flagyl per OBGYN 3. HIV - Dr. Gonzales following - Continue HIV anti-retroviral therapy 4. Ileus KUB: Dilation of Colon - Primary team started Ducolax Code Status: Full Diet: NPO IVF: LR @ 150cc/h DVT PPx: SCDs GI PPx: Famotidine Dispo: Will continue to monitor fluid status. Addendum - Attending - Attending Attestation Date/Time: 12/09/19 1853 I personally evaluated the patient and discussed the management with Dr. Tripp I agree with the History, Examination, Assessment and Plan documented above with any addition or exceptions noted below - Patient complaining of abd pain. No flatus or BM. Afebrile VSS A/P: 1) Oliguria - received fluid bolus yesterday with some increase in urine output. Continue to monitor. 2) Ileus- encourage ambulation, 3) TOA s/p laproscopic left salpingectomy- plans as per surgery, 4) HIV- continue current meds.
[2019-12-09 07:18] LABS: #Basophils 0.1 thou/uL (0.0-0.2); #Eosinphils 0.1 thou/uL (0.0-0.7); #Lymphocytes 0.9 thou/uL (1.20-3.40); #Monocytes 0.8 thou/uL (0.11-0.59); #Neutrophils 13.5 thou/uL (1.40-6.50); %Basophils 0.3 % (0.0-1.0); %Eosinophils 0.4 % (0.0-10.0); %Lymphocytes 6.1 % (21.0-51.0); %Neutrophils 88.1 % (42.0-75.0); Hemoglobin 11.7 g/dL (12.0-16.0); Mean Corpuscular HGB CONC 31.6 g/dL (32.0-36.0); Mean Corpuscular Hemoglobin 29.9 pg (27.0-31.0); Mean Corpuscular Volume 94.4 fL (78.0-98.0); Mean Platelet Volume 7.4 fL (7.4-10.4); Platelet Count 290 thou/uL (130-400); RBC Distribution Width 13.7 % (11.5-14.5); Red Blood Cell (RBC) Count 3.93 mill/uL (4.20-5.40); White Blood Cell (WBC) Count 15.3 thou/uL (4.8-10.8)
[2019-12-09 07:35] LABS: Anion Gap 11 mmol/L (10-20); BUN (Urea Nitrogen) 9 mg/dL (7.0-18.7); Calc. Creatinine Clearance 102 mL/min (70-130); Calcium 10.2 mg/dL (7.8-10.44); Carbon Dioxide 20 mmol/L (22-29); Chloride 105 mmol/L (98-107); Estimated GFR-MDRD Greater than 90; Glucose 87 mg/dL (70-105); Potassium 4.2 mmol/L (3.5-5.1); Sodium 132 mmol/L (136-145)
[2019-12-09] MEDS ORDERED: Bisacodyl 10 MG SUPP PR PRN (07:37)
[2019-12-09] MEDS: cefOXitin Sodium/Dextrose,Iso 2 GM in Premix Bag 1 BAG IVPB SCH ×4 (07:59→23:31)
--- NOTE | 2019-12-09 08:25 | ULT ---
RENAL ULTRASOUND: INDICATION: Left-sided flank pain concerning for hydronephrosis. COMPARISON: Prior CT of the abdomen and pelvis with contrast dated 12/06/2019. FINDINGS: The right kidney measured 11.9 x 4.2 x 5.4 cm. The left kidney measured 9.9 x 5.0 x 4.3 cm. No foca l renal lesion or hydronephrosis is evident. Bladder is decompressed with a Daniels catheter. IMPRESSION: No focal renal lesion or hydronephrosis. POS: BH
--- NOTE | 2019-12-09 08:39 | PRG ---
DATE OF SERVICE: 12/09/2019 SUBJECTIVE: The patient is currently postop day #2 after laparoscopy with salpingectomy for 2 ovarian abscesses. Overnight, she has had decreased urine output and increasing abdominal distention. Family Practice was consulted for oliguria. Evaluation demonstrated labs consistent with a pre-renal origin, and a renal ultrasound showed no hydronephrosis. OBJECTIVE: VITAL SIGNS: Most recent vital signs, blood pressure 110/76, pulse 81, respirations 20, and temperature 98.4. Urine output overnight has been 250 mL. She has received three 1 L normal saline boluses. ABDOMEN: On exam, her abdomen was moderately distended. Incisions are clean and there is no oozing. LABORATORY DATA: This morning, show a white count of 15.3, down from 21; hemoglobin and hematocrit 11.7 and 37.1 respectively. Her chemistries show a potassium of 4.2, a creatinine of 0.77 and a glucose of 87. KUB shows dilated large bowel loops. I see no air-fluid levels. ASSESSMENT: Suspect ileus with 3rd spacing of fluid as etiology for decreased urinary output. PLAN: I have examined the patient with Dr. Alexis, and the plan at this time will be to obtain a General Surgery consult regarding her ileus. Job ID: [id number]
[2019-12-09] MEDS: metroNIDAZOLE 500 MG in Premix Bag 1 BAG IVPB SCH ×2 (09:11→16:04)
[2019-12-09] MEDS: Lactated Ringer's 1,000 ML IV SCH (09:15)
--- NOTE | 2019-12-09 09:25 | RAD ---
KUB: Date: 12/09/2019 INDICATION: Abdominal distention and ileus. COMPARISON: Prior CT of abdomen and pelvis dated 12/06/2019. FINDINGS: There is mild gas-filled distention of loops of colon and small bowel within the central abdomen. The re is gas in the region of the rectum. No acute osseous abnormality is evident. IMPRESSION: Findings suspicious for mild to moderate ileus. POS: BH
[2019-12-09] MEDS ORDERED: Famotidine/PF 20 mg/2ml Vial SLOW IVP SCH (09:30)
[2019-12-09] MEDS: GENVOYA PO SCH (09:32)
[2019-12-09] MEDS: Famotidine 20 MG TAB PO SCH (09:32)
[2019-12-09 13:14] LABS: LOG10 HIV-1 RNA 3.516 (.)
[2019-12-09] MEDS: Meperidine HCl/PF 25 MG/ML VIAL SLOW IVP PRN ×3 (13:55→23:24)
--- NOTE | 2019-12-09 19:52 | PRG ---
DATE OF SERVICE: 12/09/2019 TIME OF SERVICE: [address] Lagunas's note from earlier in the day. I had discussed the patient's case with Dr. Chapin, who agree it was most likely an ileus and that CT scan was not indicated at this time. He did not feel that rectal tube would be beneficial as well. He recommended encouraging ambulation in patients. The patient has been ambulated with physical therapy several times today. She states that her discomfort is stable. She does not feel really more distended or less, she is not passing gas. She has had no nausea or vomiting. OBJECTIVE: VITAL SIGNS: Temperature is 98.9, pulse 90, respirations 16, blood pressure 119/83. Urine output is increased during the day and she has had 600 mL of urine output since 7:00 this morning. She had 2 large boluses prior to my coming on and just had regular IV fluids since then. She is not complaining of shortness of breath or anything else. LABORATORY DATA: She has no new labs from this morning. PHYSICAL EXAMINATION: LUNGS: Clear to auscultation bilaterally. ABDOMEN: Not changed in its exam. She has hypoactive bowel sounds. She does not have a tense abdomen, but does have distention. EXTREMITIES: Without clubbing, cyanosis, or edema. IMPRESSION: Stable postoperative ileus, status post laparoscopy with tubo-ovarian abscess. No evidence of peritonitis. PLAN: We will repeat x-ray, KUB tomorrow. We will perform down at radiology both flat and upright for better technique. Repeat CBC and basic metabolic panel in the a.m. and re-evaluate. . Job ID: [id number]
[2019-12-09 20:38] LABS: Band 2 % (5-11); Hemoglobin 10.7 g/dL (12.0-16.0); Lymphocytes 9 % (21-51); MDiff Complete? YES; Mean Corpuscular HGB CONC 33.1 g/dL (32.0-36.0); Mean Corpuscular Hemoglobin 30.5 pg (27.0-31.0); Mean Corpuscular Volume 92.3 fL (78.0-98.0); Mean Platelet Volume 6.9 fL (7.4-10.4); Monocytes 2 % (0-10); Myelocyte 1 % (0-0); Neutrophil 86 % (42-75); Platelet Count 282 thou/uL (130-400); RBC Distribution Width 13.5 % (11.5-14.5); Red Blood Cell (RBC) Count 3.49 mill/uL (4.20-5.40); White Blood Cell (WBC) Count 13.2 thou/uL (4.8-10.8)
[2019-12-09] MEDS: Famotidine/PF 20 mg/2ml Vial SLOW IVP SCH (21:19)
[2019-12-09 22:25] LABS: Chlam.trachomatis by PCR,Urine Not Detected (NotDetected)
[2019-12-10] MEDS: metroNIDAZOLE 500 MG in Premix Bag 1 BAG IVPB SCH ×3 (00:22→17:21)
[2019-12-10] MEDS: Simethicone Chewable 80 MG TAB PO PRN (02:24)
[2019-12-10] MEDS: Lactated Ringer's 1,000 ML IV SCH ×5 (02:25→21:31)
[2019-12-10] MEDS: Meperidine HCl/PF 25 MG/ML VIAL SLOW IVP PRN (05:00)
[2019-12-10] MEDS: cefOXitin Sodium/Dextrose,Iso 2 GM in Premix Bag 1 BAG IVPB SCH ×4 (05:28→23:21)
--- NOTE | 2019-12-10 06:45 | PDOC.FM ---
- Subjective Subjective: Pt states her pain is an 8/10 today. She does not feel well. She had an episode of bilious vomiting this morning. - Objective MAR Reviewed: Yes Vital Signs & Weight: Vital Signs (12 hours) Temp Pulse Resp BP Pulse Ox 12/10/19 04:45 98.4 F 92 20 140/92 H 96 12/10/19 00:05 98.5 F 94 20 133/87 94 L 12/09/19 20:05 99.0 F 90 18 122/86 95 Weight Weight 68 kg I&O: 12/08/19 12/09/19 12/10/19 06:59 06:59 06:59 Intake Total 6787 243 8769 Output Total 074 522 6692 Balance 1220 -130 5026 Result Diagrams: 12/09/19 20:02 12/10/19 06:05 Phys Exam - Physical Examination she looks uncomfortable, she is lying down HEENT: moist MMs Neck: no nodes, supple Respiratory: clear to auscultation bilateral Cardiovascular: RRR, no significant murmur, no rub no bowel sounds heard, distended Musculoskeletal: no edema, pulses present Neurological: moves all 4 limbs Lymphatic: no nodes Deviation from normal: flat affect Skin: no rash, normal turgor Dx/Plan (1) S/P unilateral salpingo-oophorectomy Code(s): Z90.721 - ACQUIRED ABSENCE OF OVARIES, UNILATERAL Status: Acute (2) Tubo-ovarian abscess Code(s): N70.93 - SALPINGITIS AND OOPHORITIS, UNSPECIFIED Status: Acute (3) HIV (human immunodeficiency virus infection) Code(s): B20 - HUMAN IMMUNODEFICIENCY VIRUS [HIV] DISEASE Status: Acute (4) Ileus Code(s): K56.7 - ILEUS, UNSPECIFIED Status: Acute - Plan Plan: 44 yo with HIV postop day 2 for left salpingectomy & abdominal washout for a perforated tub-ovarian abscess. 1. Acute oliguria - FENa <1%, sp grav 1.080, no FRAN- labs c/w with prenrenal picture - mIVF at 50 cc/hr - Strict I/O * Urinary Output: 400mL/12H- 33cc/H -Renal US wnl -Continue IVF 2. Left TOA s/p laparascopic left salpingectomy with abdominal washout - 12/06, POD 3 - Continue routine postop care - D/C toradol due to poor urinary output - Continue current abx regimen of cefoxitin, doxycycline & flagyl per OBGYN 3. HIV - Dr. Gonzales following - Continue HIV anti-retroviral therapy 4. Ileus KUB: Dilation of Colon - Primary team started Ducolax - Was able to work with PT yesterday - KUB this morning Code Status: Full Diet: NPO IVF: LR @ 150cc/h DVT PPx: SCDs GI PPx: Famotidine Dispo: Fluids adjusted last night, we will see how her urine output is this morning. Addendum - Attending - Attending Attestation Date/Time: 12/10/191930 I personally evaluated the patient and discussed the management with Dr. Sunil Tripp I agree with the History, Examination, Assessment and Plan documented above with any addition or exceptions noted below - Patient c/o abd pain . Denies flatus. (+) nausea. Afebrile VSS. A/P: 1) Oliguria- resolved; urine output improved. 2) Post-operative ileus- plan as per implementation engineer surgery.
[2019-12-10 06:52] LABS: Anion Gap 14 mmol/L (10-20); BUN (Urea Nitrogen) 6 mg/dL (7.0-18.7); Calc. Creatinine Clearance 96 mL/min (70-130); Calcium 9.3 mg/dL (7.8-10.44); Carbon Dioxide 14 mmol/L (22-29); Chloride 108 mmol/L (98-107); Estimated GFR-MDRD Greater than 90; Glucose 87 mg/dL (70-105); Potassium 4.5 mmol/L (3.5-5.1); Sodium 132 mmol/L (136-145)
[2019-12-10] MEDS: Famotidine/PF 20 mg/2ml Vial SLOW IVP SCH ×2 (07:47→21:32)
--- NOTE | 2019-12-10 08:09 | PRG ---
DATE OF SERVICE: 12/10/2019 TIME OF SERVICE: 07:15. SUBJECTIVE: Ms. Koo is lying in bed this morning. She states her pain and discomfort is about the same. She denies passing gas. She had one episode of very low volume emesis overnight. Urine output overnight averaged approximately 50 mL/h. IV fluids have been continued since yesterday at 150 an hour. Giving her a positive fluid balance of 5000 mL for the last 24 hours, it was decreased to 50 mL this morning. OBJECTIVE: VITAL SIGNS: Temperature 98.4, pulse , respirations 20, and blood pressure 140/92. The patient has been afebrile for 24 hours. LUNGS: Clear to auscultation bilaterally. ABDOMEN: Her abdomen is somewhat distended, really does not seem to be changed in an exam over yesterday, bowel sounds remained hypoactive. Incisions are intact and dry. LABORATORY DATA: Repeat CBC last night was 32%, white count stayed down to 13.2. Base met this morning revealed a stable sodium at 132, improved potassium at 4.5, and a creatinine at 0.82, which is stable. IMPRESSION: Human immunodeficiency virus positive tubal ovarian abscess, status post left salpingectomy with pelvic washout, on cefoxitin, Flagyl and doxy with Dr. Gonzales following along. The patient has a low viral load. She appears to have a persistent ileus. PLAN: Continue conservative management. We will repeat KUB flat and upright this morning and Dr. Rose will take over the patient's care as OB hospitalist . May consider formal General Surgery consult if no improvement over time, continuing ambulation and remaining n.p.o. status. Job ID: [id number]
--- NOTE | 2019-12-10 09:21 | RAD ---
2 VIEW ABDOMEN: Supine and upright views. INDICATION: Ileus. Comparison with films from 12/09/2019. FINDINGS/IMPRESSION: There continues to be gas-filled mildly dilated loops of small and large bowel. Differential air flui d levels in the small bowel noted on the upright film. No free air or soft tissue mass effect. No sig nificant change from yesterday. POS: AGW
[2019-12-10] MEDS: GENVOYA PO SCH (10:22)
[2019-12-10] MEDS ORDERED: Magnesium Sulfate 4 GM in Sodium Chloride 0.9% 250 ML 250 ML IVPB SCH (12:30)
[2019-12-10] MEDS: Ibuprofen 800 MG TAB PO SCH ×2 (14:14→21:33)
--- NOTE | 2019-12-10 17:28 | PRG ---
DATE OF SERVICE: 12/10/2019 SUBJECTIVE: The patient walked today, past the service station from her room and back. She is still drinking clear liquids only or actually just water. She started passing flatus, still with moderate pain in the abdominal area. No vomiting. No respiratory symptoms. She has been afebrile. OBJECTIVE: VITAL SIGNS: T-max 99.1, BP 140/90, heart rate 89, respiratory rate 20, O2 saturation 96. GENERAL: Does not appear in distress. Awake and oriented. Follows commands. LUNGS: Clear. CARDIAC: S1 and S2, regular rate. ABDOMEN: Soft. Abdomen is mildly distended and with mild diffuse tenderness. Bowel sounds are present. EXTREMITIES: Moves extremities equally. LABORATORY DATA: White cell count is 13.2, hemoglobin 10, platelets 282, with 86% neutrophils, bands are down to 2. Sodium 132, creatinine 0.82. CD4 cell count is 233, her viral load was 3280. I do not see any sample submitted for culture from the operative procedure. Pathology revealed tubo-ovarian abscess, extensive acute inflammation. ASSESSMENT AND DISCUSSION: Longstanding human immunodeficiency virus infection. Recrudescence of tubo-ovarian abscess with surgical intervention, which consisted of left salpingectomy and abdominal washout. I do not think samples were submitted for culture from the specimen. The patient is improving, starting to recover her bowel function, and increased mobility. The patient is still on IV antimicrobial therapy. Eventually, when white cell count returns normal and she is mobile and able to eat, she can be discharged on oral quinolones, such as levofloxacin plus oral Flagyl for a total of 14 days. Job ID: [id number]
[2019-12-10] MEDS: HYDROcodone/Acetaminophen 5/325 mg Tablet PO PRN (18:49)
[2019-12-11] MEDS: metroNIDAZOLE 500 MG in Premix Bag 1 BAG IVPB SCH ×3 (00:01→16:18)
[2019-12-11] MEDS: Meperidine HCl/PF 25 MG/ML VIAL SLOW IVP PRN ×2 (04:54→18:40)
[2019-12-11 05:08] LABS: #Eosinphils 0.1 thou/uL (0.0-0.7); #Lymphocytes 1.2 thou/uL (1.20-3.40); #Monocytes 1.1 thou/uL (0.11-0.59); #Neutrophils 8.6 thou/uL (1.40-6.50); %Basophils 0.1 % (0.0-1.0); %Eosinophils 0.8 % (0.0-10.0); %Lymphocytes 10.7 % (21.0-51.0); %Monocytes 10.1 % (0.0-10.0); %Neutrophils 78.4 % (42.0-75.0); Hemoglobin 10.6 g/dL (12.0-16.0); Mean Corpuscular HGB CONC 32.4 g/dL (32.0-36.0); Mean Corpuscular Hemoglobin 29.9 pg (27.0-31.0); Mean Corpuscular Volume 92.3 fL (78.0-98.0); Mean Platelet Volume 6.6 fL (7.4-10.4); Platelet Count 335 thou/uL (130-400); RBC Distribution Width 13.5 % (11.5-14.5); Red Blood Cell (RBC) Count 3.55 mill/uL (4.20-5.40); White Blood Cell (WBC) Count 10.9 thou/uL (4.8-10.8)
--- NOTE | 2019-12-11 06:01 | PDOC.PP ---
Post Progress Note Subjective: Patient seen resting in bed this morning. She states her abdominal pain improves when receiving pain medication (rates as 0 with pain meds) and then pain increases to a 9 out of 10 "when the pain medications wear off". Also complains of some body wide aching/soreness. Required 1 dose of Demerol overnight. She has been passing gas through the night. No BM. She did have 1 episode of bilious emesis of about 200 mL which occurred shortly after patient had dose of Ibuprofen. Immediately following emesis patient stated to the nurse she felt much better. Still having some nausea this morning but no further episodes of vomiting. 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 Patient receiving IVF @ 50ml/hr and no PO intake. Patient says she would like to try some ice chips today. Patient was able to get up and walk in the hallway about 130 ft yesterday with Physical Therapy. PO intake tolerated: no (not attempted) Flatus: yes Ambulation: yes Vital Signs (12 hours) Temp Pulse Resp BP Pulse Ox 12/11/19 04:50 99.5 F 88 18 136/87 97 12/11/19 00:05 99.6 F 93 20 157/87 H 96 12/10/19 20:10 98.8 F 96 20 149/85 H 98 Weight Weight 68 kg - Physical Examination General: NAD Cardiovascular: no m/r/g, RRR Respiratory: clear to auscultation bilaterally, non-labored breathing Abdominal: no distention Deviation from normal: hypoactive bowel sounds, currently applied heating pad, TTP over LLQ & LUQ Extremities: negative homans (B) Skin: no rash (incision sites dry, intact) Neurological: no gross focal deficits Psychiatric: normal affect Result Diagrams: 12/11/19 05:00 12/10/19 06:05 (1) HIV (human immunodeficiency virus infection) Code(s): B20 - HUMAN IMMUNODEFICIENCY VIRUS [HIV] DISEASE Status: Acute Qualifiers: HIV symptom status: unspecified Qualified Code(s): B20 - Human immunodeficiency virus [HIV] disease (2) Ileus Code(s): K56.7 - ILEUS, UNSPECIFIED Status: Acute (3) S/P unilateral salpingo-oophorectomy Code(s): Z90.721 - ACQUIRED ABSENCE OF OVARIES, UNILATERAL Status: Acute (4) Tubo-ovarian abscess Code(s): N70.93 - SALPINGITIS AND OOPHORITIS, UNSPECIFIED Status: Acute - Assessment/Plan 44 yo with HIV postop day 4 for left salpingectomy & abdominal washout for a perforated tubo-ovarian abscess. # Left TOA s/p laparascopic left salpingectomy with abdominal washout - 12/06, POD 4 - Continue routine postop care - D/C toradol due to poor urinary output - Continue current abx regimen of cefoxitin, doxycycline & flagyl per OBGYN # Acute oliguria - FENa <1%, sp grav 1.080, no FRAN- labs c/w with prenrenal picture - mIVF at 50 cc/hr - Strict I/O * Urinary Output: 800mL/10H- 80 mL/H overnight -Renal US wnl # HIV - Dr. Gonzales following - Continue HIV anti-retroviral therapy # Ileus - initial KUB: Dilation of Colon, repeat KUB with gas-filled mildly dilated loops of small and large bowel - Continue Ducolax - Continue to encourage working with & ambulation with PT - Has Simethicone prn, consider switching to scheduled Code Status: Full Diet: NPO IVF: LR @ 50cc/h DVT PPx: SCDs GI PPx: Famotidine Dispo: Stable, pain intermittently controlled with IV medications. Encourage oral pain medication use. Continue to encourage ambulation. Consider placing NG tube if vomiting reoccurs. Addendum - Attending - Attending Attestation Date/Time: 12/11/19 0041 I personally evaluated the patient and discussed the management with Dr. Malik. I agree with the History, Examination, Assessment and Plan documented above.
[2019-12-11] MEDS: cefOXitin Sodium/Dextrose,Iso 2 GM in Premix Bag 1 BAG IVPB SCH ×4 (06:04→23:40)
[2019-12-11] MEDS: Ibuprofen 800 MG TAB PO SCH ×3 (06:08→22:00)
[2019-12-11] MEDS ORDERED: Simethicone Chewable 80 MG TAB PO PRN (07:17)
[2019-12-11] MEDS: Simethicone Chewable 80 MG TAB PO SCH ×4 (08:56→21:23)
[2019-12-11] MEDS: Famotidine/PF 20 mg/2ml Vial SLOW IVP SCH ×2 (08:59→21:21)
[2019-12-11] MEDS: GENVOYA PO SCH (09:03)
[2019-12-11 18:54] LABS: ALT (SGPT) 12 U/L (8-55); AST (SGOT) 23 U/L (5-34); Albumin 2.6 g/dL (3.5-5.0); Alkaline Phosphatase 62 U/L (40-110); Anion Gap 13 mmol/L (10-20); BUN (Urea Nitrogen) 6 mg/dL (7.0-18.7); Bilirubin, Total 0.2 mg/dL (0.2-1.2); Calc. Creatinine Clearance 121 mL/min (70-130); Calcium 9.2 mg/dL (7.8-10.44); Carbon Dioxide 18 mmol/L (22-29); Chloride 107 mmol/L (98-107); Estimated GFR-MDRD Greater than 90; Globulin 2.9 g/dL (2.4-3.5); Glucose 75 mg/dL (70-105); Potassium 4.1 mmol/L (3.5-5.1); Protein, Total 5.5 g/dL (6.0-8.3); Sodium 134 mmol/L (136-145)
--- NOTE | 2019-12-11 19:47 | PDOC.BPN ---
- Brief Progress Note Encounter Date: 12/11/19 Encounter Time: 19:50 Vitals reviewed as chart check: Afebrile. Some mild HTN noted...follow. CMP was ok earlier. I advanced diet to regular
[2019-12-11] MEDS: Lactated Ringer's 1,000 ML IV SCH (23:39)
[2019-12-12] MEDS: Meperidine HCl/PF 25 MG/ML VIAL SLOW IVP PRN ×2 (00:58→05:01)
[2019-12-12] MEDS: Ondansetron ODT 4 MG TAB PO PRN ×2 (00:58→07:33)
[2019-12-12] MEDS: metroNIDAZOLE 500 MG in Premix Bag 1 BAG IVPB SCH ×4 (01:00→22:55)
--- NOTE | 2019-12-12 05:12 | PDOC.BPN ---
- Brief Progress Note Encounter Date: 12/12/19 Encounter Time: 05:30 S: Patient ate ice chips only overnight. Claims she does not have appetite and thought of clear liquids makes her nauseous. No vomiting overnight. Reports she is "passing lots of gas." RN mildly concerned about pad saturated ~50% over 4 hour period overnight. RN gave demerol x2 overnight. O: Hypertensive, BP 155/91. Otherwise, VSS. Gen: no acute distress Heart: RRR Lungs: no acute resp distress Abd: normoactive bowel sounds, improved from yesterday's exam. Soft, moderately tender to palpation Extremities: warm, well perfused. A/P: 44 yo with HIV postop day 5 for left salpingectomy & abdominal washout for a perforated tubo-ovarian abscess. Left TOA s/p laparascopic left salpingectomy with abdominal washout - 12/06, POD 5 - Continue routine postop care - Continue current abx regimen of cefoxitin, doxycycline & flagyl Acute oliguria - FENa <1%, sp grav 1.080, no FRAN- labs c/w with prenrenal picture - IVF at 50 cc/hr - Strict I/O - 600 mL per 12 hours documented. Consider increasing IVF and encourage PO intake. HIV - Dr. Gonzales following - Continue HIV anti-retroviral therapy Post-op Ileus - Continue Dulcolax, ambulation on own and with PT - Has Simethicone prn and scheduled - CMP yesterday afternoon WNL Code Status: Full Diet: Regular, as tolerated IVF: LR @ 50cc/h DVT PPx: SCDs GI PPx: Famotidine Dispo: Stable. Continue to monitor ileus, PO intake, urine output, and bleeding.
--- NOTE | 2019-12-12 06:13 | PDOC.BPN ---
- Brief Progress Note Encounter Date: 12/12/19 Encounter Time: 06:15 POD4 Patient seen at bedside, still with some ABD discomfort. VB O. High BP noted this am but patient states due to abdominal discomfort. Afebrile. BP was 171/94 Physical: NAD Abd is slightly tympanic. Hypoactive BS VB on pad Asessment and plan: POD 4 from salpingectomy, TOA. On Doxy/cefoxitin/flagyl. continue meds HIV- stable Vag Bleed: I reviewed possibility of her cycle with her, she told me it is a little early for her cycle.Follow. Remove kruger today as UOP ok Due to persist ileus, I will order CT of abdomen
[2019-12-12] MEDS: cefOXitin Sodium/Dextrose,Iso 2 GM in Premix Bag 1 BAG IVPB SCH ×4 (06:30→22:54)
[2019-12-12] MEDS: Ibuprofen 800 MG TAB PO SCH ×2 (06:49→13:38)
[2019-12-12] MEDS: Famotidine/PF 20 mg/2ml Vial SLOW IVP SCH ×2 (07:34→19:59)
--- NOTE | 2019-12-12 10:05 | CT ---
CT abdomen and pelvis with IV and oral contrast HISTORY: Abdominal pain. Recent surgery. COMPARISON: 12/06/2019. FINDINGS: Small amount of bilateral pleural fluid and compressive atelectasis at each lung base now a pparent. Solid organs of the abdomen are intact. Very small amount of free fluid within the dependent portion of the pelvis with interval postoperative changes of the pelvis. Moderately dilated gas and fluid distended loops of proximal to mid small bowel to the level of acute decompression within the lower central abdomen just below the level of the aortic bifurcation. The small bowel beyond this point is decompressed. Some gas and stool remaining within the rectum. Chronic deformity of the T11 superior endplate is again demonstrated. IMPRESSION : High-grade obstruction of the mid small bowel, presumed adhesion at the lower central abdomen. Interval postoperative changes of the pelvis without evidence of complication.
[2019-12-12] MEDS: GENVOYA PO SCH (10:23)
[2019-12-12] MEDS: Simethicone Chewable 80 MG TAB PO SCH ×4 (10:23→22:54)
--- NOTE | 2019-12-12 11:00 | PDOC.BPN ---
- Brief Progress Note Encounter Date: 12/12/19 Encounter Time: 10:59 Patient has returned from CT scan. SBO from suspected adhesion noted on findings, will call Dr. Sequeira (gen surg information systems operator)
[2019-12-12] MEDS ORDERED: Iopamidol-370 76% 500 ML 1 ML ONE (14:51)
[2019-12-12] MEDS ORDERED: Acetaminophen 500 MG TAB PO PRN (17:09)
[2019-12-12] MEDS ORDERED: traMADol HCl 50 MG TAB PO PRN ×2 (17:09)
[2019-12-12] MEDS ORDERED: Ketorolac Tromethamine 30 MG/ML VIAL IVP SCH (18:30)
[2019-12-12] MEDS: Enoxaparin Sodium 40 MG/0.4 ML SYRINGE SC SCH (20:00)
[2019-12-12] MEDS: Lactated Ringer's 1,000 ML IV SCH (20:01)
[2019-12-13] MEDS: Lactated Ringer's 1,000 ML IV SCH ×3 (05:55→20:21)
[2019-12-13] MEDS: cefOXitin Sodium/Dextrose,Iso 2 GM in Premix Bag 1 BAG IVPB SCH ×3 (05:56→18:24)
--- NOTE | 2019-12-13 07:43 | PDOC.BPN ---
- Brief Progress Note Encounter Date: 12/13/19 Encounter Time: 07:33 S: Complaining of significant pain again this morning after being awoken. Feeling nauseated but no emesis. Had a large BM yesterday before being seen by Dr. Sequeira but none since. Did not answer when asked if passing gas. O: Vital Signs - Most Recent Temp Pulse Resp BP Pulse Ox 98.8 F 69 18 168/93 H 98 12/13/19 04:00 12/13/19 04:00 12/13/19 04:00 12/13/19 04:00 12/12/19 07:42 Gen - Resting comfortably before being awoken, then appeared very uncomfortable. Abd - distended, tympanic, TTP Ext - no edema A/P: 44 y/o POD#6 s/p laparoscopic left salpingectomy for TOA. CT scan yesterday showed high grade obstruction of mid small bowel. NGT placement attempted x 2 yesterday but unsuccessful, patient refused another attempt. Dr. Sequeira consulted and now managing. Per nurse, plan to continue expectant management with a repeat KUB this morning.
--- NOTE | 2019-12-13 09:11 | RAD ---
EXAM: 2 views of the abdomen HISTORY: Small bowel obstruction COMPARISON: 12/10/2019 FINDINGS: 2 views of the abdomen shows air-filled loops of small bowel in the left upper abdomen. The re are a few air-fluid levels within these mildly enlarged small bowel loops. No suspicious calcifications are seen. The bones are unremarkable. IMPRESSION: Stable enlarged loops of small bowel in the left upper quadrant of the abdomen
[2019-12-13] MEDS: metroNIDAZOLE 500 MG in Premix Bag 1 BAG IVPB SCH ×2 (09:31→16:27)
[2019-12-13] MEDS: Simethicone Chewable 80 MG TAB PO SCH ×4 (09:34→22:19)
[2019-12-13] MEDS: GENVOYA PO SCH (09:35)
[2019-12-13] MEDS: Famotidine/PF 20 mg/2ml Vial SLOW IVP SCH (09:35)
[2019-12-13] MEDS: Polyethylene Glycol 3350 17 GM Packet PO SCH (09:45)
[2019-12-13] MEDS ORDERED: Polyethylene Glycol 3350 17 GM Packet PO SCH (10:00)
[2019-12-13] MEDS: Ketorolac Tromethamine 30 MG/ML VIAL IVP PRN ×2 (10:07→20:19)
--- NOTE | 2019-12-13 12:52 | RAD ---
Exam: Gastrografin small bowel HISTORY: Evaluate for small bowel obstruction. Comparison none FINDINGS: Gastrografin was administered. An intermediate and one hour image performed FINDINGS: The immediate image demonstrates contrast opacifying the stomach and distended loops of pro ximal small bowel. The one-hour image demonstrates contrast opacifying the right hemicolon. Distended small bowel loops do remain. There does appear to be a transition between the proximal and distal small bowel loops in terms of bowel caliber. IMPRESSION: 1. No evidence of high-grade obstruction. 2. There is persistent change in caliber of the small bowel loops. Proximal small bowel loops are dis tended. The small bowel loops are decompressed. The possibility of a partial obstruction cannot be excluded.
--- NOTE | 2019-12-13 17:33 | CON ---
DATE OF CONSULTATION: HISTORY OF PRESENT ILLNESS: Azalea Koo is a 44-year-old black female, works at [employer], 2, para 2, from her , lives with her family. The patient was admitted on 12/06/2019 for pelvic pain. She had a tubo-ovarian abscess, and on 12/07/2019, Dr. Rivas performed a laparoscopic left salpingectomy and abdominal washout. Findings at that time were that of a left pyosalpinx with some adhesions involving the uterus, tubes, and bowel and upper abdomen. The patient postoperatively seemed to be doing well, but developed changes consistent with bowel obstruction. She underwent a renal ultrasound, that was unremarkable. She had abdominal x-rays initially on 12/08 and 12/09, that revealed distended small bowel loops. She had a CT scan of abdomen and pelvis suggesting a small bowel obstruction with a transition point that decompressed distal bowel. Efforts today to place an NG tube were unsuccessful. The patient was not cooperative. By the time I have seen her, she has had a large bowel movement and is passing flatus, feels somewhat better. ALLERGIES: NONE. HABITS: Tobacco, none. Alcohol, none. MEDICATIONS: Outpatient, 1. Genvoya tablet. 2. Flagyl. 3. Doxycycline. PAST SURGICAL HISTORY: Recent left salpingectomy for TOA, right hand surgery, otherwise unremarkable. PAST MEDICAL HISTORY: Noncontributory except for HIV, followed by Dr. Gonzales. PHYSICAL EXAMINATION: VITAL SIGNS: Weight 149 pounds, BMI 27, temperature 98.6, pulse 67, and blood pressure 164/92. HEAD, EARS, EYES, NOSE, AND THROAT: Unremarkable. LUNGS: Clear to auscultation. CARDIAC: Regular rate and rhythm without murmur or gallop. ABDOMEN: Soft. Mild tympany. Mild distention of her abdomen. No guarding. No rebound. Laparoscopic scar is well healed. EXTREMITIES: Unremarkable. No ankle edema. LABORATORY DATA: White count 10 yesterday and hemoglobin 10 yesterday. Basic metabolic profile unremarkable yesterday. CAT scan of abdomen and pelvis, above findings noted. ASSESSMENT/PLAN: 1. Postoperative bowel obstruction. She has had a large bowel movement by the time of visit. I think at this time we can manage this without an NG tube. I have recommended she be n.p.o. except for some ice chips. We would repeat her abdominal x-rays in the morning clinical course overnight, we would plan to advance her diet slowly, probably to full liquids tomorrow if she is doing well. We would minimize the narcotics and treat her mostly with Tylenol and ibuprofen and Ultram. 2. Human immunodeficiency virus positive. Job ID: [id number]
--- NOTE | 2019-12-13 19:41 | PRG ---
DATE OF SERVICE: 12/13/2019 SUBJECTIVE: The patient had a KUB and a small-bowel follow-through today. The KUB showed enlarged loops of small bowel in the left upper quadrant. The small-bowel follow-through showed no high-grade obstruction. There was persistent change in caliber of the small bowel loops. Proximal small bowel loops were distended. Possibility of partial obstruction was considered. The CT from 12/11 shows high-grade obstruction of mid small bowel, presumably due to adhesion in the lower central abdomen. It looks like she is going to start drinking fluids later today. She is having loose stools intermittently. No respiratory symptoms. OBJECTIVE: VITAL SIGNS: Temperature max 98.8, blood pressure 160/88, pulse 79, respirations 18, and O2 saturation 97. GENERAL: She does not appear in distress, oriented , follows commands. LUNGS: Symmetric, clear breath sounds. HEART: S1 and S2. Regular rate. No S3 or S4. ABDOMEN: Soft, distended. Bowel sounds are not audible at the moment. Mild tenderness. No bladder distention. LABORATORY DATA: White cell count down to 10.9, hemoglobin 10.6, platelets 335, and 78% neutrophils. Sodium 134 and creatinine 0.65. Liver profile normal. Albumin 2.6. MEDICATIONS: She is still on IV cefoxitin, doxycycline, and Flagyl. ASSESSMENT AND DISCUSSION: 1. Human immunodeficiency virus seropositive status, well controlled. 2. Chronic pelvic inflammatory disease with recrudescence with tubo-ovarian abscess, which required surgical I and D with left salpingectomy and abdominal washout. 3. Now at evidence of small-bowel obstruction, may have an area of adhesions. An attempt at oral nutrition is going to be carried out later today. 4. Diarrhea, persists. May have to check Clostridium difficile in stool. Job ID: [id number]
[2019-12-13] MEDS: Enoxaparin Sodium 40 MG/0.4 ML SYRINGE SC SCH (22:19)
--- NOTE | 2019-12-13 22:57 | PRG ---
DATE OF SERVICE: 12/13/2019 SUBJECTIVE: Azalea Koo is doing well today. Abdominal x-rays today reveals both gas and stool in the colon and she had been having some bowel movements. A small bowel follow-through was obtained, revealed transit of the contrast in the colon. Within 1 hour, she has had multiple bowel movements. She is advanced to full liquids and regular diet ordered in the morning. OBJECTIVE: LUNGS: Clear to auscultation. CARDIAC: Regular rate and rhythm without murmur or gallop. ABDOMEN: Soft, mild tympany, minimal distention, nontender. Surgical wound looks good. ASSESSMENT/PLAN: Partial bowel obstruction, hopefully resolved. Diet trial. Advance to full liquids with a regular diet tomorrow. Saline lock. The patient maybe ready for discharge on oral antibiotics in the next day or 2 pending Gynecology recommendations. She tolerates her diet overnight. She could possibly go home tomorrow. No surgical intervention planned at this point. Job ID: [id number]
[2019-12-14] MEDS: cefOXitin Sodium/Dextrose,Iso 2 GM in Premix Bag 1 BAG IVPB SCH ×3 (00:17→11:49)
[2019-12-14] MEDS: metroNIDAZOLE 500 MG in Premix Bag 1 BAG IVPB SCH ×2 (00:55→09:33)
[2019-12-14] MEDS: Promethazine HCl 25 MG/ML VIAL SLOW IVP PRN (05:11)
[2019-12-14] MEDS: Ondansetron ODT 4 MG TAB PO PRN (05:14)
--- NOTE | 2019-12-14 06:38 | PDOC.EVN ---
Event Note - Event Note Event Note: POD#7 s/p scope TOA and washout. Very small amount of emesis this AM. Copiopus watery diarrhea post small bowel study and followthrough. BP155/95, P76, T98.6, 98% on RA. Abdomen is soft, minimally distended Plan: Will cont to follow Dr. Sequeira's guidance on SBO. Will d/w Dr. Rivas this AM.
[2019-12-14] MEDS: GENVOYA PO SCH (09:33)
[2019-12-14] MEDS: Simethicone Chewable 80 MG TAB PO SCH ×4 (09:33→20:41)
[2019-12-14] MEDS: Polyethylene Glycol 3350 17 GM Packet PO SCH (09:34)
--- NOTE | 2019-12-14 10:58 | RAD ---
ABDOMEN 2 VIEWS: Date: 12/14/2019 HISTORY: Follow-up partial small bowel obstruction. COMPARISON: 12/13/2019. FINDINGS: There are some persistently dilated small bowel loops, somewhat less distended than on the prior stud y. There are bilateral lower lobe parenchymal changes in the lower lung zones. Contrast media from th e previous small bowel series has completely advanced into the colon. No evidence for free intraperit rubalcava air. IMPRESSION: Bilateral lower lung zone pleural and parenchymal changes. Persistent dilated but somewhat less diste nded small bowel loops than on the prior study. Contrast given orally at the time of the small bowel series yesterday has passed into the colon. POS: OFF
[2019-12-14] MEDS: Lactated Ringer's 1,000 ML IV SCH ×2 (11:45→23:48)
--- NOTE | 2019-12-14 13:48 | PRG ---
DATE OF SERVICE: 12/14/2019 SUBJECTIVE: Azalea Koo's small-bowel follow-through was normal yesterday. She was started on a diet. She states she did have some vomiting this morning. She had some nausea. However, this has passed. Abdominal x-rays this morning reveal gas throughout her GI tract, even in her colon. She had some mild dilated short segment loops of small bowel in her left upper quadrant, although less distended than the prior study. The patient was on IV metronidazole and she has tramadol, Motrin, and Tylenol pain. OBJECTIVE: LUNGS: Clear to auscultation. CARDIAC: Regular rate and rhythm without murmur or gallop. ABDOMEN: Soft. Bowel sounds present. She has had multiple bowel movements. Laparoscopic wounds for salpingectomy are normal. She does have some mild tympany in the left abdomen. ASSESSMENT AND PLAN: The patient is having some nausea and vomiting. She does not have a complete bowel obstruction. Because of her multiple previous episodes of PID and operative description of her adhesions, if operation is undertaken, she would need an open exploratory laparotomy and I am sure extensive adhesiolysis extensive adhesions and scar tissue from previous PID episodes. At this point, we would try to avoid a major operation, let her eat, see how she does. I think operative intervention for partial bowel obstruction be a last resort. Continue to monitor her and see how she tolerates her diet. Job ID: [id number]
--- NOTE | 2019-12-14 15:31 | PRG ---
DATE OF SERVICE: 12/14/2019 SUBJECTIVE: The patient is a 44-year-old female, now hospital day 8, admitted for tubo-ovarian abscess and abdominal pain, and she is postop day 7 for diagnostic laparoscopy with left salpingectomy. Over the last several days, the patient has had evidence of a partial small bowel obstruction with spontaneous improvement as evidenced by serial abdominal x-rays. In meeting with the patient today, she reports that she has been having very little appetite. She is tolerating Big Red and other liquids at times and forces herself to eat, but does not have an appetite. She reports that her abdomen does still hurt some, but overall improved from earlier. The patient also reports that she has not been up walking except for one time since her admission. She has been on doxycycline, cefoxitin, and Flagyl IV for treatment of this tubo-ovarian abscess and pelvic infection. In discussing the case briefly with Dr. Sequeira, the general surgeon , we will be attempting to see if a change in her medications and more ambulation and less narcotic use can overall help the situation prior to deciding whether surgery is necessary to resolve this obstruction. After speaking with Dr. Gonzales, we have switched her over to p.o. ciprofloxacin and Flagyl as the patient is willing to take these orally and see if she tolerates them. I have also discontinued tramadol 2 tablets q.6 hours p.r.n. for pain and I have left one tablet q.6 hours p.r.n. for pain in addition to the ibuprofen and Tylenol for pain control. Hopefully, the combination of these changes and increased ambulation can continue to improve her situation without surgery. OBJECTIVE: VITAL SIGNS: At this time, blood pressure is 152/91, temperature 98.4, pulse is 70, respiratory rate of 18, saturating 100% on room air. LABORATORY DATA: Her most recent white count measured on the 10 of December is normalizing at 10.9, stable hemoglobin of 10.6, hematocrit of 32.8, and platelets of 335,000. PLAN: The patient is agreeable to these changes. I will follow up with her later this evening to see how her ambulation has gone. Job ID: [id number] [facility]
[2019-12-14] MEDS: Enoxaparin Sodium 40 MG/0.4 ML SYRINGE SC SCH (20:41)
[2019-12-14] MEDS: Ketorolac Tromethamine 30 MG/ML VIAL IVP PRN (20:50)
[2019-12-15] MEDS ORDERED: Cipro 250 MG TAB PO SCH (06:00)
[2019-12-15] MEDS: Polyethylene Glycol 3350 17 GM Packet PO SCH (08:29)
[2019-12-15] MEDS: Simethicone Chewable 80 MG TAB PO SCH ×2 (08:29→13:27)
[2019-12-15] MEDS: metroNIDAZOLE 500 MG TAB PO SCH ×2 (08:29→16:11)
[2019-12-15] MEDS: GENVOYA PO SCH (09:19)
[2019-12-15] MEDS: Lactated Ringer's 1,000 ML IV SCH (10:11)
--- NOTE | 2019-12-15 14:51 | PRG ---
DATE OF SERVICE: 12/15/2019 SUBJECTIVE: Azalea Koo is sitting up, at noon, eating her lunch. She has a regular diet before her. She states she has not had any nausea or vomiting since yesterday morning when she had an episode. She reports passing some flatus. Her abdomen feels essentially normal. It perhaps is a little distended. OBJECTIVE: LUNGS: Clear to auscultation. CARDIAC: Regular rate and rhythm without murmur or gallop. ABDOMEN: Soft. Minimal tympany, upper abdomen. Laparoscopic wounds, well healed. ASSESSMENT AND PLAN: The patient's small-bowel follow-through was normal. She is tolerating her diet. In my opinion, the patient can be discharged home. I have talked to the patient and the patient's sister while the sister is on speaker phone. The patient lives with her sister and her sister is a lead pharmacy technician. I have discussed the patient's hospital course and radiological findings. I have discussed with them that she may have a partial bowel obstruction, and operative intervention is not necessarily indicated, but only reserved if she cannot tolerate her diet. Her small-bowel follow-through was essentially normal with some persistently dilated small bowel loops. Her abdomen seems to be better today than yesterday. Her bowel sounds are of normal character. I have explained that operative intervention would require open laparotomy incision and possibly a prolonged hospitalization, and that we should reserve this to perform only if she cannot tolerate her diet, and her oral intake is compromised reliably. At this point, recommend discharge home with followup in my office in 1 to 2 weeks. She will continue oral antibiotics for her PID. She has had multiple antibiotic treatments for PID over the past many years. During the time of her recent laparoscopy, she is noted to have extensive adhesions, [id number], in addition pelvic adhesions. Consideration for laparoscopic evaluation if indicated could be performed and then it is very likely she will need an open laparotomy incision if operation elected, but I think this should be postponed for now to see how she does. The patient and her sister are in agreement. Job ID: [id number]
--- NOTE | 2019-12-15 16:32 | PRG ---
DATE OF SERVICE: 12/15/2019 SUBJECTIVE: Feeling better. She is able to eat. Had a bowel movement. Still with abdominal tenderness, moderate. No respiratory symptoms. OBJECTIVE: VITAL SIGNS: Afebrile and other vital signs are normal. O2 saturations 98% on room air. GENERAL: No distress. LUNGS: Clear to auscultation and percussion. HEART: S1 and S2, regular rate. ABDOMEN: Moderately distended. Moderately tender. Bowel sounds are present. Laparoscopy ports are okay. EXTREMITIES: Moves all extremities. No edema. LABORATORY DATA: White cell count 10.9, hemoglobin 10.6, and platelets 335. Sodium 134, creatinine 0.65. Liver profile normal, and CD4 was 233. She had a C difficile in stool, which was negative. ASSESSMENT AND DISCUSSION: Human immunodeficiency virus, well controlled; chronic pelvic inflammatory disease with recrudescence and tubo-ovarian abscess, status post incision and drainage with salpingectomy and washout; small bowel obstruction, which is improving. Diarrhea is better. Continue Cipro and Flagyl for another 10 days. Follow up in the clinic. Continue Genvoya. Job ID: [id number]
[2019-12-15 16:37] VITALS: BP 157/97; TEMP 98.4
--- NOTE | 2019-12-15 16:38 | PDOC.EVN ---
Event Note - Event Note Event Note: OK to DC per DR. Sequeira. Precautions reviewed. Followup; Dr. Gonzales in [address] Sequeira in 2 weeks. Rx for Cipro 250 BID x10 days, Flagyl 500 BID x 10 days given.
--- NOTE | 2019-12-16 08:32 | PQF ---
CLINICAL DOCUMENTATION CLARIFICATION FORM: Dear Dr. Lagunas Date: 12/16/19 Please exercise your independent, professional judgment in responding to the clarification form. Clinical indicators are provided on the bottom of this form for your review. Please check appropriate box(es): [ ] Sepsis due to: [ XX ] Localized infection without sepsis (At time of admit she did not show signs/symptoms of sepsis) [ ] SIRS due to non-infectious process (please specify etiology) [ ] with organ dysfunction [ ] without organ dysfunction [ ] Other diagnosis [ ] Unable to determine In addition, please specify: Present on Admission (POA): [ ] Yes [ ] No [ ] Unable to determine For continuity of documentation, please document condition throughout progress notes and discharge summary. Thank You. WBC 12/06: 17.6 WBC 12/06: 18.3 WBC 12/07: 21.3 BANDS 12/06: 30 RISKS: H/O PID (JOSE LAGUNAS 12/14) TUBO-OVARIAN ABSCESS (H&P) TREATMENT: IV CEFOXITIN (12/06-12/13) IV DOXYCYCLINE (12/08-12/13) IV FLAGYL (12/08-12/13) STOOL CULTURES INFECTIOUS DISEASE CONSULT DIAGNOSTIC LAPAROTOMY WITH LEFT SALPINGECTOMY AND ABDOMINAL WASHOUT (OP NOTE 12/06) CDS Signature: Erica Andersen RN Phone #:[phone] Date: 12/16/19 This is a permanent part of the Medical Record [facility]
[2019-12-17] MEDS ORDERED: Ibuprofen 800 MG TAB PO PRN (23:59)
== END 2019-12-15 17:57 | disposition home or self-care (01) | DRG 742 ==
LOC: 3SW 15:08 → 3SE 12-07 14:25 → 3SW 12-11 18:24 → SURG A 12-13 21:53
PROVIDERS: ADMIT Obstetrics & Gynecology; ATTEND Obstetrics & Gynecology
PROC: 0UB64ZZ Excision of Left Fallopian Tube, Percutaneous Endoscopic Approach (ICD-10-PCS; principal; 2019-12-07)
DX: N70.93 Salpingitis and oophoritis, unspecified (principal); B20 Human immunodeficiency virus [HIV] disease; K91.30 Postprocedural intestinal obstruction, unspecified as to partial versus complete; Z20.828 Contact with and (suspected) exposure to other viral communicable diseases; N76.0 Acute vaginitis; R19.7 Diarrhea, unspecified; R34 Anuria and oliguria; Z79.899 Other long term (current) drug therapy
CPT/HCPCS: 36415; 74018; 74019; 74177; 74250; 76770; 76856; 80048; 80053; 81003; 81015; 82550; 82570; 83735; 84300; 85025; 85048; 86361; 86780; 87324; 87449; 87491; 87536; 87591; 88305; 93976; J0694; J1100; J1650; J1885; J2175; J2405; J2550; J2704; J3010; J3475; J3490; J7050; Q0162; Q9967; S0020; S0028

== ENCOUNTER 2019-12-28 06:47 | Emergency (ER) | payer OTHER ==
[2019-12-28 07:20] LABS: BHCG - Serum Negative (NEGATIVE); Pregs Control Background? CLEAR/WHITE (CLR/WHITE); Pregs Control Bar Appear? YES (CONTROL BAR)
[2019-12-28 07:22] LABS: #Basophils 0.1 thou/uL (0.0-0.2); #Eosinphils 0.1 thou/uL (0.0-0.7); #Lymphocytes 1.7 thou/uL (1.20-3.40); #Monocytes 0.7 thou/uL (0.11-0.59); #Neutrophils 2.4 thou/uL (1.40-6.50); %Basophils 1.5 % (0.0-1.0); %Eosinophils 2.7 % (0.0-10.0); %Lymphocytes 34.1 % (21.0-51.0); %Monocytes 14.8 % (0.0-10.0); %Neutrophils 46.9 % (42.0-75.0); Hemoglobin 12.1 g/dL (12.0-16.0); Mean Corpuscular HGB CONC 32.6 g/dL (32.0-36.0); Mean Corpuscular Hemoglobin 30.2 pg (27.0-31.0); Mean Corpuscular Volume 92.6 fL (78.0-98.0); Mean Platelet Volume 7.1 fL (7.4-10.4); Platelet Count 407 thou/uL (130-400); RBC Distribution Width 13.9 % (11.5-14.5); Red Blood Cell (RBC) Count 4.01 mill/uL (4.20-5.40)
[2019-12-28] MEDS ORDERED: Morphine 4 MG/ML VIAL ONE (07:28)
[2019-12-28] MEDS ORDERED: Ondansetron PF 4 MG/2 ML Vial ONE (07:28)
[2019-12-28 07:30] LABS: ALT (SGPT) 11 U/L (8-55); AST (SGOT) 15 U/L (5-34); Alkaline Phosphatase 69 U/L (40-110); Anion Gap 14 mmol/L (10-20); BUN (Urea Nitrogen) 4 mg/dL (7.0-18.7); Bilirubin, Total 0.3 mg/dL (0.2-1.2); Calc. Creatinine Clearance 0 mL/min (70-130); Calcium 10.1 mg/dL (7.8-10.44); Carbon Dioxide 21 mmol/L (22-29); Chloride 107 mmol/L (98-107); Estimated GFR-MDRD Greater than 90; Globulin 3.9 g/dL (2.4-3.5); Glucose 114 mg/dL (70-105); Lipase 70 U/L (8-78); Potassium 3.8 mmol/L (3.5-5.1); Protein, Total 7.9 g/dL (6.0-8.3); Sodium 138 mmol/L (136-145)
[2019-12-28 07:52] LABS: Bilirubin Negative (Negative); Blood, Urine Negative (Negative); Clarity Clear (Clear); Glucose, Urine (Dipstick) Normal (Negative); Ketone, Urine Negative (Negative); Leukocyte Negative Leu/uL (Negative); Nitrite Negative (Negative); Protein, Urine (Dipstick) 20 mg/dL (Neg-Trace); Specific Gravity, Urine 1.028 (1.002-1.036); Urobilinogen Normal mg/dL (Less than 2); pH, Urine 5.5 (5.0-9.0)
== END 2019-12-28 08:39 | disposition home or self-care (01) ==
LOC: ERS 06:47
DX: G89.18 Other acute postprocedural pain (principal); I10 Essential (primary) hypertension
CPT/HCPCS: 36415; 80053; 81003; 83605; 83690; 84703; 85025; 96361; 96374; 96375; J2270; J2405

== ENCOUNTER 2020-08-12 17:52 | Emergency (ER) | payer OTHER ==
[2020-08-12] MEDS ORDERED: Sterile Water 10 ML VIAL IVP SCH (18:45)
[2020-08-12] MEDS ORDERED: Activase 2 MG VIAL CATH SCH (18:45)
== END 2020-08-12 21:10 | disposition home or self-care (01) ==
LOC: ERS 17:52
DX: T82.898A Other specified complication of vascular prosthetic devices, implants and grafts, initial encounter (principal); F17.210 Nicotine dependence, cigarettes, uncomplicated
CPT/HCPCS: 96374; J2997

== ENCOUNTER 2021-10-28 12:25 | Emergency (ER) | payer OTHER ==
[2021-10-28] MEDS ORDERED: Midazolam HCl 2 mg/2 ml Vial ONE (12:32)
[2021-10-28 13:11] LABS: #Basophils 0.1 thou/uL (0.0-0.2); #Eosinphils 0.2 thou/uL (0.0-0.7); #Lymphocytes 1.9 thou/uL (1.20-3.40); #Monocytes 0.5 thou/uL (0.11-0.59); #Neutrophils 3.1 thou/uL (1.40-6.50); %Basophils 0.9 % (0.0-1.0); %Lymphocytes 32.7 % (21.0-51.0); %Monocytes 9.2 % (0.0-10.0); %Neutrophils 54.2 % (42.0-75.0); Hemoglobin 11.8 g/dL (12.0-16.0); Mean Corpuscular HGB CONC 33.6 g/dL (32.0-36.0); Mean Corpuscular Hemoglobin 30.7 pg (27.0-31.0); Mean Corpuscular Volume 91.5 fL (78.0-98.0); Mean Platelet Volume 6.9 fL (7.4-10.4); Platelet Count 297 thou/uL (130-400); RBC Distribution Width 15.1 % (11.5-14.5); Red Blood Cell (RBC) Count 3.83 mill/uL (4.20-5.40); White Blood Cell (WBC) Count 5.8 thou/uL (4.8-10.8)
[2021-10-28 13:21] LABS: BHCG - Serum Negative (NEGATIVE); Pregs Control Background? CLEAR/WHITE (CLR/WHITE); Pregs Control Bar Appear? YES (CONTROL BAR)
[2021-10-28 13:28] LABS: ALT (SGPT) 13 U/L (8-55); AST (SGOT) 16 U/L (5-34); Albumin 3.9 g/dL (3.5-5.0); Alkaline Phosphatase 78 U/L (40-110); Anion Gap 12 mmol/L (10-20); BUN (Urea Nitrogen) 8 mg/dL (7.0-18.7); Bilirubin, Total 0.8 mg/dL (0.2-1.2); Calc. Creatinine Clearance 0 mL/min (70-130); Calcium 10.2 mg/dL (7.8-10.44); Carbon Dioxide 19 mmol/L (22-29); Chloride 111 mmol/L (98-107); Estimated GFR 101; Globulin 3.6 g/dL (2.4-3.5); Glucose 92 mg/dL (70-105); Protein, Total 7.5 g/dL (6.0-8.3); Sodium 138 mmol/L (136-145)
[2021-10-28 13:29] LABS: Alcohol Less than 10 mg/dL (Less than 10); Salicylate Less than 8.0 mg/dL (15.0-30.0)
[2021-10-28] MEDS ORDERED: Ketorolac Tromethamine 30 MG/ML VIAL ONE ×2 (14:09→18:35)
[2021-10-28 15:46] LABS: Bacteria/HPF 3+ HPF (None Seen); Bilirubin Negative (Negative); Blood, Urine Negative (Negative); Clarity Clear (Clear); Glucose, Urine (Dipstick) Normal (Negative); Ketone, Urine Negative (Negative); Leukocyte 25 Leu/uL (Negative); Nitrite Negative (Negative); Protein, Urine (Dipstick) Negative (Neg-Trace); RBC/HPF 0-3 HPF (0-3); Specific Gravity, Urine 1.013 (1.002-1.036); Urobilinogen Normal mg/dL (Less than 2); WBC/HPF 0-3 HPF (0-3); pH, Urine 6.5 (5.0-9.0)
[2021-10-28 15:52] LABS: Amphetamine Detected (NotDetected); Barbiturates Screen Not Detected (NotDetected); Benzodiazepine Screen Not Detected (NotDetected); Cocaine Metabolite Screen Not Detected (NotDetected); Methadone Not Detected (NotDetected); Methamphetamine Detected (NotDetected); Opiate Screen Not Detected (NotDetected); Oxycodone Screen Not Detected (NotDetected); Phencyclidine (PCP) Not Detected (NotDetected); THC/Cannabinoid Screen Not Detected (NotDetected); Tricyclic Screen Not Detected (NotDetected)
[2021-10-28 16:40] LABS: Salicylate Less than 8.0 mg/dL (15.0-30.0)
[2021-10-28] MEDS ORDERED: Haloperidol Lactate 5 MG/ML VIAL ONE (19:25)
[2021-10-29] MEDS ORDERED: Ibuprofen 800 MG TAB ONE (07:11)
== END 2021-10-29 15:05 | disposition home or self-care (01) ==
LOC: ERS 12:25
DX: T39.1X2A Poisoning by 4-Aminophenol derivatives, intentional self-harm, initial encounter (principal); F43.20 Adjustment disorder, unspecified; R07.9 Chest pain, unspecified; R06.00 Dyspnea, unspecified; N83.209 Unspecified ovarian cyst, unspecified side; Z87.891 Personal history of nicotine dependence
CPT/HCPCS: 36415; 71045; 80053; 80143; 80179; 80306; 80307; 81003; 81015; 84443; 84484; 84703; 85025; 93005; 96374; 96375; 96376; J1630; J1885; J2250

== ENCOUNTER 2023-09-16 14:18 | Emergency (ER) | payer MEDICAID, OTHER ==
[2023-09-16 16:27] LABS: #Basophils 0.04 10x3/uL (0.0-0.2); %Basophils 0.7 % (0.0-1.0); %Eosinophils 4.4 % (0.0-10.0); %Lymphocytes 35.2 % (21.0-51.0); %Neutrophils 51.3 % (42.0-75.0); Hematocrit 34.3 % (36.0-47.0); Mean Corpuscular HGB CONC 32.1 g/dL (32.0-36.0); Mean Corpuscular Hemoglobin 24.1 pg (27.0-31.0); Mean Corpuscular Volume 75.2 fL (78.0-98.0); Mean Platelet Volume 8.8 fL (7.4-10.4); Platelet Count 366 10x3/uL (130-400); RBC Distribution Width 16.8 % (11.5-14.5); Red Blood Cell (RBC) Count 4.56 mill/uL (4.20-5.40)
[2023-09-16 16:36] LABS: BHCG - Serum Negative (NEGATIVE); Pregs Control Background? CLEAR/WHITE (CLR/WHITE); Pregs Control Bar Appear? YES (CONTROL BAR)
[2023-09-16 16:43] LABS: ALT (SGPT) 7 U/L (8-55); AST (SGOT) 23 U/L (5-34); Albumin 3.8 g/dL (3.5-5.0); Alkaline Phosphatase 111 U/L (40-110); Anion Gap 10 mmol/L (10-20); BUN (Urea Nitrogen) 9 mg/dL (7.0-18.7); Bilirubin, Total 0.5 mg/dL (0.2-1.2); Calc. Creatinine Clearance 0 mL/min (70-130); Calcium 10.7 mg/dL (7.8-10.44); Carbon Dioxide 22 mmol/L (22-29); Chloride 109 mmol/L (98-107); Estimated GFR 95; Globulin 4.7 g/dL (2.4-3.5); Glucose 76 mg/dL (70-105); Lipase 35 U/L (8-78); Potassium 4.5 mmol/L (3.5-5.1); Protein, Total 8.5 g/dL (6.0-8.3); Sodium 136 mmol/L (136-145)
[2023-09-16 17:06] LABS: Bacteria/HPF None Seen HPF (None Seen); Bilirubin Negative (Negative); Blood, Urine 3+ (Negative); CAUTI Indications for Culture Pelvic or flank pain; Glucose, Urine (Dipstick) Normal (Negative); Ketone, Urine Negative (Negative); Leukocyte Negative Leu/uL (Negative); Nitrite Negative (Negative); Protein, Urine (Dipstick) 300 mg/dL (Neg-Trace); RBC/HPF Greater than 50 HPF (0-3); Squamous Epithelial 21-50 HPF (0-3); Urobilinogen Normal mg/dL (Less than 2); WBC/HPF Greater than 50 HPF (0-3)
[2023-09-16 17:15] LABS: Clarity Bloody (Clear)
[2023-09-16 17:17] LABS: Urine Culture Reflex Yes Yes
[2023-09-16] MEDS ORDERED: Morphine 4 MG/ML VIAL ONE ×2 (17:25→22:43)
[2023-09-16] MEDS ORDERED: Ondansetron PF 4 MG/2 ML Vial ONE (17:25)
[2023-09-16] MEDS ORDERED: Doxycycline 100 MG CAP ONE (18:00)
[2023-09-16] MEDS ORDERED: Sodium Chloride 0.9% 100 ML ONE (18:00)
[2023-09-16] MEDS ORDERED: cefTRIAXone (ROCEPHIN) 1 GM VIAL ONE (18:00)
[2023-09-16] MEDS ORDERED: metroNIDAZOLE 500 MG (100 mL) BAG ONE (18:31)
== END 2023-09-17 01:08 | disposition short-term general hospital (02) ==
LOC: ERS 14:18
DX: N70.93 Salpingitis and oophoritis, unspecified (principal); B20 Human immunodeficiency virus [HIV] disease; Z87.891 Personal history of nicotine dependence
CPT/HCPCS: 74177; 76856; 80053; 81001; 83690; 84703; 85025; 87077; 87086; 87186; 96365; 96368; 96375; 96376; J0696; J2270; J2405; J3490

== ENCOUNTER 2023-09-28 03:52 | Inpatient (IN) | payer MEDICAID, OTHER ==
[2023-09-28 05:51] LABS: #Basophils 0.05 10x3/uL (0.0-0.2); %Basophils 0.7 % (0.0-1.0); %Eosinophils 0.6 % (0.0-10.0); %Lymphocytes 19.7 % (21.0-51.0); %Monocytes 8.9 % (0.0-10.0); %Neutrophils 69.8 % (42.0-75.0); Hematocrit 29.5 % (36.0-47.0); Hemoglobin 9.4 g/dL (12.0-16.0); Mean Corpuscular HGB CONC 31.9 g/dL (32.0-36.0); Mean Corpuscular Hemoglobin 24.7 pg (27.0-31.0); Mean Corpuscular Volume 77.4 fL (78.0-98.0); Mean Platelet Volume 8.7 fL (7.4-10.4); Platelet Count 318 10x3/uL (130-400); RBC Distribution Width 16.9 % (11.5-14.5); Red Blood Cell (RBC) Count 3.81 mill/uL (4.20-5.40)
[2023-09-28 06:07] LABS: ALT (SGPT) 17 U/L (8-55); AST (SGOT) 27 U/L (5-34); Albumin 3.8 g/dL (3.5-5.0); Alkaline Phosphatase 72 U/L (40-110); Anion Gap 14 mmol/L (10-20); BUN (Urea Nitrogen) 9 mg/dL (7.0-18.7); Bilirubin, Total 0.4 mg/dL (0.2-1.2); Calc. Creatinine Clearance 0 mL/min (70-130); Calcium 10.4 mg/dL (7.8-10.44); Carbon Dioxide 18 mmol/L (22-29); Chloride 111 mmol/L (98-107); Estimated GFR 96; Glucose 66 mg/dL (70-105); Potassium 3.8 mmol/L (3.5-5.1); Protein, Total 7.8 g/dL (6.0-8.3); Sodium 139 mmol/L (136-145)
[2023-09-28 06:12] LABS: Troponin I 0.036 ng/mL (< 0.028)
[2023-09-28] MEDS ORDERED: Senokot S 8.6-50 MG TAB PO PRN (07:43)
[2023-09-28] MEDS ORDERED: Bisacodyl 10 MG SUPP PR PRN (07:43)
[2023-09-28] MEDS ORDERED: Bisacodyl 5 MG TAB PO PRN (07:43)
[2023-09-28] MEDS ORDERED: Calcium Carbonate 500 MG ChewTAB PO PRN (07:43)
[2023-09-28] MEDS ORDERED: Ondansetron PF 4 MG/2 ML Vial IVP PRN (07:43)
[2023-09-28] MEDS ORDERED: Dextrose 50% Abboject 50 ML SYRINGE SLOW IVP PRN (07:48)
[2023-09-28] MEDS ORDERED: Dextrose 5% in Water 1,000 ML IV PRN (07:48)
[2023-09-28] MEDS ORDERED: Glucagon 1 MG/ML KIT IM PRN (07:48)
[2023-09-28] MEDS: traMADol HCl 50 MG TAB PO PRN (09:04)
[2023-09-28] MEDS: Pantoprazole 40 MG VIAL IVP SCH (09:04)
[2023-09-28 09:07] LABS: Iron 28 ug/dL (50-170); Iron Binding Capacity, Total 374 mcg/dL (265-497)
[2023-09-28 09:12] VITALS: BMI 28.9
[2023-09-28] MEDS ORDERED: Aspirin 325 mg Enteric Coated Tablet PO SCH (09:15)
[2023-09-28 09:21] LABS: Ferritin 6.6 ng/mL (10-291); Thyroid Stimulating Hormone 0.7568 uIU/mL (0.35-4.94)
[2023-09-28 09:30] LABS: Hematocrit 31.3 % (36.0-47.0); Hemoglobin 9.9 g/dL (12.0-16.0); Mean Corpuscular HGB CONC 31.6 g/dL (32.0-36.0); Mean Corpuscular Hemoglobin 24.7 pg (27.0-31.0); Mean Corpuscular Volume 78.1 fL (78.0-98.0); Platelet Count 353 10x3/uL (130-400); RBC Distribution Width 16.9 % (11.5-14.5); Red Blood Cell (RBC) Count 4.01 mill/uL (4.20-5.40)
[2023-09-28 09:40] LABS: INR-International Normal Ratio 1.1; Prothrombin Time 13.8 sec (12.0-14.7)
[2023-09-28 09:42] LABS: PTT 19.7 sec (22.9-36.1)
[2023-09-28 09:47] LABS: Acetaminophen Less than 10 mcg/mL (10.0-30.0); Alcohol Less than 10.0 mg/dL (Less than 10); Iron 29 ug/dL (50-170); Iron Binding Capacity, Total 364 mcg/dL (265-497); Salicylate Less than 8.0 mg/dL (15.0-30.0)
[2023-09-28 09:53] LABS: Troponin I 0.042 ng/mL (< 0.028)
[2023-09-28 10:58] LABS: Bacteria/HPF None Seen HPF (None Seen); Bilirubin Negative (Negative); Blood, Urine Negative (Negative); CAUTI Indications for Culture Alt mental st,lethar; Clarity Clear (Clear); Glucose, Urine (Dipstick) Normal (Negative); Ketone, Urine 10 mg/dL (Negative); Leukocyte Negative Leu/uL (Negative); Nitrite Negative (Negative); Protein, Urine (Dipstick) Negative (Neg-Trace); RBC/HPF 0-3 HPF (0-3); Specific Gravity, Urine 1.012 (1.002-1.036); Squamous Epithelial 0-3 HPF (0-3); Urobilinogen Normal mg/dL (Less than 2); WBC/HPF 0-3 HPF (0-3); pH, Urine 6.5 (5.0-9.0)
[2023-09-28 11:05] LABS: Amphetamine Detected (NotDetected); Barbiturates Screen Not Detected (NotDetected); Benzodiazepine Screen Not Detected (NotDetected); Cocaine Metabolite Screen Not Detected (NotDetected); Methadone Not Detected (NotDetected); Methamphetamine Detected (NotDetected); Opiate Screen Not Detected (NotDetected); Oxycodone Screen Not Detected (NotDetected); Phencyclidine (PCP) Not Detected (NotDetected); THC/Cannabinoid Screen Not Detected (NotDetected); Tricyclic Screen Not Detected (NotDetected)
[2023-09-28 11:09] LABS: Urine Culture Reflex No No
[2023-09-28] MEDS ORDERED: Regadenoson 0.4 MG/5 ML SYRINGE ONE (12:35)
[2023-09-28] MEDS: Aspirin 325 mg Enteric Coated Tablet PO SCH (14:14)
[2023-09-28] MEDS: Acetaminophen 325 MG TAB PO PRN (14:14)
[2023-09-28] MEDS: metroNIDAZOLE 500 MG TAB PO SCH (14:15)
[2023-09-28] MEDS: Atorvastatin Calcium 40 MG TAB PO SCH (20:50)
[2023-09-28] MEDS: Doxycycline 100 MG CAP PO SCH (20:50)
[2023-09-29 05:15] LABS: #Basophils 0.04 10x3/uL (0.0-0.2); %Eosinophils 5.2 % (0.0-10.0); %Lymphocytes 34.6 % (21.0-51.0); %Monocytes 10.2 % (0.0-10.0); %Neutrophils 48.8 % (42.0-75.0); Hematocrit 28.8 % (36.0-47.0); Hemoglobin 9.1 g/dL (12.0-16.0); Mean Corpuscular HGB CONC 31.6 g/dL (32.0-36.0); Mean Corpuscular Hemoglobin 24.7 pg (27.0-31.0); Mean Corpuscular Volume 78.3 fL (78.0-98.0); Mean Platelet Volume 8.8 fL (7.4-10.4); Platelet Count 296 10x3/uL (130-400); RBC Distribution Width 17.2 % (11.5-14.5); Red Blood Cell (RBC) Count 3.68 mill/uL (4.20-5.40)
[2023-09-29 05:19] LABS: Actual Bicarbonate (HCO3v) 20.1 mEq/L (22-28); Analyzer IN Cardio ER; Base Excess -4.5 mEq/L (-2.0 to +3.0); Calcium, Ionized (venous) 1.31 mmol/L (1.16-1.32); Chloride (VBG) 109 mmol/L (98-106); Hematocrit-VBG 30 % (36.0-47.0); Hemoglobin (Hb) 10.1 g/dL (11.7-16.0); Potassium (VBG) 3.78 mmol/L (3.70-5.30); Sodium 140 mmol/L (133-146); pH (venous) 7.373 (7.32-7.43)
[2023-09-29 05:42] LABS: ALT (SGPT) 15 U/L (8-55); AST (SGOT) 23 U/L (5-34); Albumin 3.2 g/dL (3.5-5.0); Alkaline Phosphatase 68 U/L (40-110); Anion Gap 9 mmol/L (10-20); BUN (Urea Nitrogen) 7 mg/dL (7.0-18.7); Bilirubin, Direct 0.2 mg/dL (0.1-0.3); Bilirubin, Total 0.4 mg/dL (0.2-1.2); CK (CPK) 322 U/L (29-168); Calc. Creatinine Clearance 109 mL/min (70-130); Calcium 9.7 mg/dL (7.8-10.44); Carbon Dioxide 20 mmol/L (22-29); Chloride 112 mmol/L (98-107); Estimated GFR 103; Glucose 100 mg/dL (70-105); Magnesium 1.7 mg/dL (1.6-2.6); Potassium 3.6 mmol/L (3.5-5.1); Sodium 137 mmol/L (136-145)
[2023-09-29 07:23] LABS: Hemoglobin A1c 5.5 % (4.0-6.0)
[2023-09-29] MEDS ORDERED: Aspirin 81 mg Enteric Coated Tablet PO SCH (09:00)
[2023-09-29] MEDS ORDERED: Non-Formulary Item 1 EACH (Bictegrav/Emtricit/Tenofov Ala 1 TAB Tab) PO SCH (09:00)
[2023-09-29] MEDS ORDERED: Bictegrav/Emtricit/Tenofov Ala 1 TAB PO SCH (09:00)
[2023-09-29] MEDS ORDERED: Enoxaparin 40 MG (0.4 mL) SYRINGE SC SCH (09:00)
[2023-09-29] MEDS: Enoxaparin 40 MG (0.4 mL) SYRINGE SC SCH (09:41)
[2023-09-29] MEDS: Ferrous Sulfate 325 MG TAB PO SCH (09:42)
[2023-09-29] MEDS: Aspirin 81 mg Enteric Coated Tablet PO SCH (09:42)
[2023-09-29] MEDS: Hydrochlorothiazide 25 MG TAB PO SCH (09:42)
[2023-09-29] MEDS ORDERED: GASTROGRAFIN 30 ML BOT ONE (11:54)
[2023-09-29] MEDS ORDERED: Iopamidol-370 76% 500 ML MDV (1 ML CHARGE) ONE (11:54)
[2023-09-30 04:02] LABS: #Basophils 0.05 10x3/uL (0.0-0.2); %Basophils 1.1 % (0.0-1.0); %Eosinophils 5.4 % (0.0-10.0); %Lymphocytes 36.2 % (21.0-51.0); %Monocytes 10.3 % (0.0-10.0); %Neutrophils 46.8 % (42.0-75.0); Hematocrit 29.5 % (36.0-47.0); Hemoglobin 9.3 g/dL (12.0-16.0); Mean Corpuscular HGB CONC 31.5 g/dL (32.0-36.0); Mean Corpuscular Hemoglobin 24.9 pg (27.0-31.0); Mean Corpuscular Volume 79.1 fL (78.0-98.0); Mean Platelet Volume 9.3 fL (7.4-10.4); Platelet Count 339 10x3/uL (130-400); RBC Distribution Width 17.2 % (11.5-14.5); Red Blood Cell (RBC) Count 3.73 mill/uL (4.20-5.40)
[2023-09-30 04:27] LABS: Anion Gap 10 mmol/L (10-20); BUN (Urea Nitrogen) 6 mg/dL (7.0-18.7); Calc. Creatinine Clearance 112 mL/min (70-130); Calcium 9.9 mg/dL (7.8-10.44); Carbon Dioxide 22 mmol/L (22-29); Chloride 106 mmol/L (98-107); Estimated GFR 106; Glucose 93 mg/dL (70-105); Magnesium 1.7 mg/dL (1.6-2.6); Potassium 3.9 mmol/L (3.5-5.1); Sodium 134 mmol/L (136-145)
[2023-09-30 14:14] LABS: %CD4 (Helper/Inducer) 30.7 % (30.8-58.5); Absolute CD4 430 /uL (359-1519); Lymphocytes/Gated Cell Count 1.4 x10E3/uL (0.7-3.1); Total Lymphocyte 35 % (Not Estab.); WBC Total Count 4.1 x10E3/uL (3.4-10.8)
[2023-10-01 03:55] LABS: #Basophils 0.04 10x3/uL (0.0-0.2); %Eosinophils 5.8 % (0.0-10.0); %Lymphocytes 32.2 % (21.0-51.0); %Monocytes 12.3 % (0.0-10.0); %Neutrophils 48.4 % (42.0-75.0); Hematocrit 30.1 % (36.0-47.0); Hemoglobin 9.4 g/dL (12.0-16.0); Mean Corpuscular HGB CONC 31.2 g/dL (32.0-36.0); Mean Platelet Volume 9.7 fL (7.4-10.4); Platelet Count 338 10x3/uL (130-400); RBC Distribution Width 17.2 % (11.5-14.5); Red Blood Cell (RBC) Count 3.91 mill/uL (4.20-5.40)
[2023-10-01 04:36] LABS: Anion Gap 11 mmol/L (10-20); BUN (Urea Nitrogen) 7 mg/dL (7.0-18.7); Calc. Creatinine Clearance 112 mL/min (70-130); Carbon Dioxide 20 mmol/L (22-29); Chloride 106 mmol/L (98-107); Estimated GFR 106; Glucose 81 mg/dL (70-105); Magnesium 1.6 mg/dL (1.6-2.6); Potassium 3.7 mmol/L (3.5-5.1); Sodium 133 mmol/L (136-145)
[2023-10-01 15:17] LABS: HIV-1 Quantitative, RNA PCR <20 copies/mL (.)
[2023-10-01 16:02] VITALS: BP 112/63; TEMP 96.7
== END 2023-10-01 19:28 | disposition home or self-care (01) | DRG 280 ==
LOC: ERS 03:52 → SUATTDRO 03:52 → 2SW 07:48 → OBSVTOIN 09-30 15:36
PROVIDERS: ADMIT Family Medicine; ATTEND Hospitalist
DX: R55 Syncope and collapse (principal); G93.41 Metabolic encephalopathy; I21.A1 Myocardial infarction type 2; F19.10 Other psychoactive substance abuse, uncomplicated; F32.A Depression, unspecified; N70.93 Salpingitis and oophoritis, unspecified; I10 Essential (primary) hypertension; E16.2 Hypoglycemia, unspecified; D50.9 Iron deficiency anemia, unspecified; S62.336A Displaced fracture of neck of fifth metacarpal bone, right hand, initial encounter for closed fracture; I27.20 Pulmonary hypertension, unspecified; R06.4 Hyperventilation; Z21 Asymptomatic human immunodeficiency virus [HIV] infection status; Z87.891 Personal history of nicotine dependence; Z79.899 Other long term (current) drug therapy
CPT/HCPCS: 29125; 36415; 36416; 70450; 71045; 74178; 78452; 80048; 80053; 80076; 80143; 80179; 80306; 80307; 81001; 82550; 82607; 82728; 82805; 83036; 83540; 83550; 83735; 84443; 84484; 85025; 85046; 85610; 85730; 86361; 86850; 86900; 86901; 87536; 93005; 93017; 93306; 94760; 96360; 96361; 96372; 96374; 96376; A9502; C9113; G0378; J1650; J2785; Q9963; Q9967